=== PATIENT | male | born 1960 | race Caucasian/White ===

== ENCOUNTER 2020-07-05 03:45 | Outpatient (CLI) | payer OTHER, SELFPAY ==
[2020-07-05 18:37] LABS: SARS-CoV-2 RNA PCR Negative
== END 2020-07-05 03:46 | disposition home or self-care (01) ==
LOC: ANHCOVIDDT 03:45
PROVIDERS: PCP Internal Medicine; Visit Provider Internal Medicine Gastroenterology
DX: Z01.812 Encounter for preprocedural laboratory examination (principal); Z20.828 Contact with and (suspected) exposure to other viral communicable diseases
CPT/HCPCS: 87635; C9803; U0003

== ENCOUNTER 2020-07-07 01:12 | Day surgery (SDC) | payer OTHER, SELFPAY ==
[2020-07-01 10:52] VITALS: BMI 28.0
[2020-07-07 06:50] VITALS: BP 115/78; PULSE 73; RESP 16; TEMP 36.2; O2SAT 99; BMI 27.6
[2020-07-07] MEDS: LACTATED RINGERS 1,000 ML 150 ML IV CONT (07:02)
--- NOTE | 2020-07-07 07:53 | WPDANESEPPF ---
Anes - Initial Pre Proc Eval Procedure: Operation Date: 07/07/20 08:00 Proposed Procedures p Esophagogastroduodenoscopy & Colonoscopy - Yoel Woods MD Date/Time: 07/07/20 07:53 Surgeon: Yoel Woods MD Pre Op Diagnosis: Iron Deficient Anemia Patient Data Age: 60 Gender: M Height: 6 ft Weight: 92.5 kg Last Vital Signs Temp 97.2 F L 07/07/20 06:50 Pulse 73 07/07/20 06:50 Resp 16 07/07/20 06:50 BP 115/78 07/07/20 06:50 Pulse Ox 99 07/07/20 06:50 Allergies Allergy/AdvReac Type Severity Reaction Status Date / Time No Known Allergies Allergy Unverified 07/07/20 06:49 Home Medications Medication Instructions Recorded Confirmed Type aspirin [Adult Low Dose Aspirin] 81 mg PO DAILY 07/01/20 07/07/20 History ferrous sulfate 325 mg PO DAILY 07/01/20 07/07/20 History losartan 100 mg PO DAILY 07/01/20 07/07/20 History metoprolol tartrate 25 mg PO BID 07/01/20 07/07/20 History rosuvastatin 10 mg PO HS 07/01/20 07/07/20 History Patient hx anesthesia problems: none Family hx anesthesia problems: none [facility] Past Medical History Medical History (Updated 07/07/20 @ 07:49 by Lenin Latif MD) Hyperlipidemia Hypertension Social History Social History Smoking status: Never smoker Alcohol intake: current Drinks per week: 10 Alcohol use details: BEER Substance use: never Substance use type: does not use Living arrangements: with family Spiritual care concerns: No Anes - Eval Final PreProcedure Day of Procedure 07/07/20 07:53 Patient weight: normal Heart: regular rate and rhythm Lungs: clear to auscultation Airway: Mallampati scale class II Neurological: alert and oriented Last oral intake: >/= 8 hours ASA classification: II Emergent: no Anesthetic plan: proceed Anesthesia type and monitoring: general GIVS and standard monitoring Informed Consent: The patient's anesthetic plan and its attendant risks and benefits were discussed with the patient/family/POA. Questions were solicited and answers provided to the satisfaction of the patient/family/POA.
--- NOTE | 2020-07-07 07:56 | WPDGICN ---
Assessment and Plan Assessment and plan (1) SIMONA (iron deficiency anemia): Code(s): D50.9 - Iron deficiency anemia, unspecified Status: Acute Assessment and Plan: Patient with iron deficiency anemia as well as occult blood in stool. Plan is to proceed with colonoscopy an EGD to assess for. Further recommendations will be given after endoscopy. Iron replacement otherwise anticipated postprocedure. GI Consult Note Consult date/time: 07/07/20 07:56 HPI: Sharron Barros is a 60 year old male Presents for evaluation of iron deficiency anemia. Patient in general feels well. He was noted to have mild anemia as an outpatient. Stool Hemoccult was identified as being positive. Patient denies any obvious blood in his stools. Does notice some fatigue. He denies any abdominal pain is bowel habits are normal. Past medical history is significant for a malignant melanoma resected for cure. And elevated cholesterol. Review of Systems Review of Systems: All systems reviewed & are unremarkable except as noted in HPI and below PMFSH Past Medical History Medical History Hyperlipidemia Hypertension Social History Social History Smoking status: Never smoker Alcohol intake: current Drinks per week: 10 Alcohol use details: BEER Substance use: never Substance use type: does not use Living arrangements: with family Spiritual care concerns: No Meds Home Medications and Allergies Home Medications Medication Instructions Recorded Confirmed Type aspirin [Adult Low Dose Aspirin] 81 mg PO DAILY 07/01/20 07/07/20 History ferrous sulfate 325 mg PO DAILY 07/01/20 07/07/20 History losartan 100 mg PO DAILY 07/01/20 07/07/20 History metoprolol tartrate 25 mg PO BID 07/01/20 07/07/20 History rosuvastatin 10 mg PO HS 07/01/20 07/07/20 History Allergies Allergy/AdvReac Type Severity Reaction Status Date / Time No Known Allergies Allergy Unverified 07/07/20 06:49 Vital Signs Vital Signs - 24 hr 07/07/20 06:50 Temperature 97.2 F L Pulse Rate 73 Respiratory Rate 16 Blood Pressure 115/78 Pulse Oximetry 99 Exam Narrative: Exam Narrative: Physical exam reveals patient to be alert. Vital signs stable. HEENT exam unremarkable. Lungs are clear to auscultation and percussion. Heart is without murmur or extra sounds. Abdominal exam bowel sounds are present soft nontender with no organomegaly. Digital external rectal exam is normal.
[2020-07-07] MEDS: BENZOCAINE (*SP) 60 ML SPRAY CAN (HURRICAINE) 1 SPRAY MUCOUS MEM (08:07)
[2020-07-07 08:38] VITALS: BP 89/59; PULSE 64; RESP 22; O2SAT 97
[2020-07-07 08:48] VITALS: BP 95/58; PULSE 70; RESP 23; O2SAT 99
[2020-07-07 08:58] VITALS: BP 99/59; PULSE 64; RESP 25; O2SAT 100
[2020-07-07 09:08] VITALS: BP 111/70; PULSE 62; RESP 17; O2SAT 100
== END 2020-07-07 09:39 | disposition home or self-care (01) ==
PROVIDERS: PCP Internal Medicine; Visit Provider Internal Medicine Gastroenterology
PROC: 0DJ08ZZ Inspection of Upper Intestinal Tract, Via Natural or Artificial Opening Endoscopic (ICD-10-PCS; CPT 43235; principal; 2020-07-07 08:00)
DX: D50.9 Iron deficiency anemia, unspecified (principal); K64.8 Other hemorrhoids; D37.4 Neoplasm of uncertain behavior of colon; K21.0 Gastro-esophageal reflux disease with esophagitis; I10 Essential (primary) hypertension; E78.5 Hyperlipidemia, unspecified; Z79.82 Long term (current) use of aspirin
CPT/HCPCS: 45380; 43239; 87081; 88305; J2001; J2370; J2704; J7120

== ENCOUNTER 2020-07-08 10:42 | Outpatient (CLI) | payer OTHER, SELFPAY ==
[2020-07-08 11:16] LABS: Hematocrit 43.8 % (42.0-52.0); Hemoglobin 14.3 g/dL (14.0-18.0); Mean Corpuscular HGB Conc 32.6 g/dl (32-36); Mean Corpuscular Hemoglobin 28.5 pg (26-34); Mean Corpuscular Volume 87.3 fl (80-100); Mean Platelet Volume 9.4 fl (7.4-10.4); Platelet Count Result 235 k/mm3 (150-375); Red Blood Count 5.02 M/mm3 (4.6-6.20); Red Cell Distribution Width 17.1 % (11.5-14.5); White Blood Count 4.9 K/mm3 (4.5-10.0)
[2020-07-08 11:31] LABS: Alanine Aminotransferase 24 U/L (4-50); Albumin Level 4.1 g/dL (3.5-5.1); Alkaline Phosphatase 64 U/L (38-126); Aspartate Amino Transferase 23 U/L (17-59); Bilirubin,Total 0.3 mg/dL (0.2-1.3)
[2020-07-08 11:58] LABS: Carcinoembryonic Antigen 2.5 ng/mL (0.0-3.0)
== END 2020-07-08 10:43 | disposition home or self-care (01) ==
PROVIDERS: PCP Internal Medicine; Visit Provider Internal Medicine Gastroenterology
DX: K63.89 Other specified diseases of intestine (principal)
CPT/HCPCS: 36415; 80076; 82378; 85027

== ENCOUNTER 2020-07-12 09:53 | Outpatient (CLI) | payer OTHER, SELFPAY ==
--- NOTE | 2020-07-12 11:00 | ECG_ITS ---
Measurements Intervals [place] Rate: 50 P: 64 HI: 186 QRS: 7 QRSD: 122 T: 47 QT: 436 QTc: 398 Interpretive Statements SINUS BRADYCARDIA INTRAVENTRICULAR CONDUCTION DELAY DELAYED PRECORDIAL R/S TRANSITION BORDERLINE ECG Electronically Signed On 07-12-2020 11:40:03 CDT by Tucker Carranza D.O.
== END 2020-07-12 09:54 | disposition home or self-care (01) ==
LOC: ANHSURGERY 09:55
PROVIDERS: PCP Internal Medicine; Visit Provider Surgery
DX: D49.0 Neoplasm of unspecified behavior of digestive system (principal); I10 Essential (primary) hypertension
CPT/HCPCS: 36415; 86850; 86900; 86901; 93005

== ENCOUNTER → 2020-07-14 08:36 | Outpatient (CLI) | payer OTHER, SELFPAY ==
--- NOTE | ~2020-07-14 | CT_ITS ---
EXAMINATION: CT abdomen pelvis w con INDICATION: Colon mass, irregular bowel movements, melanoma melanoma TECHNIQUE: Computed tomographic images of the abdomen and pelvis were obtained after the administrati on of 100 cc of Omnipaque 350 intravenous contrast. The dose-length product (DLP) was 908.26 mGy-cm. Automated exposure control and iterative reconstruction technique were employed. COMPARISON: None available FINDINGS: The lung bases are clear. The heart size is normal. Cysts of the liver measure up to 1.7 cm in the left hepatic lobe. The spleen, pancreas, gallbladder, and adrenal glands are normal. The righ t kidney is unremarkable. There is 2.0 cm soft tissue density mass abutting the left kidney lower margoth e. There is irregular wall thickening involving the mid ascending colon. There are prominent, but non enlarged lymph nodes in the adjacent bowel mesentery. There is no free intraperitoneal gas or evidenc e of bowel obstruction. The appendix is normal. There is moderate lumbar spondylosis at L5-S1. IMPRESSION: 1. Irregular wall thickening of the mid ascending colon, likely reflecting the colon mass described i n clinical history. 2. Indeterminate soft tissue density mass abutting the inferior pole of the left kidney. Finding coul d reflect a kidney mass or possibly melanoma. Consider further evaluation by MRI without and with con trast. Reviewed, dictated and finalized at location B. IMPRESSION: 1. Irregular wall thickening of the mid ascending colon, likely reflecting the colon mass described in clinical history. 2. Indeterminate soft tissue density mass abutting the inferior pole of the lef t kidney. Finding could reflect a kidney mass or possibly melanoma. Consider fu rther evaluation by MRI without and with contrast.
[2020-07-14 09:01] LABS: Estimated Glomerular Filt Rate > 60
== END ==
PROVIDERS: PCP Internal Medicine; Visit Provider Surgery
DX: K63.89 Other specified diseases of intestine (principal)
CPT/HCPCS: 74177; Q9967

== ENCOUNTER 2020-07-15 00:15 | Outpatient (CLI) | payer OTHER, SELFPAY ==
[2020-07-16 13:40] LABS: SARS-CoV-2 RNA PCR Negative
== END 2020-07-15 00:16 | disposition home or self-care (01) ==
LOC: ANHCOVIDDT 00:15
PROVIDERS: PCP Internal Medicine; Visit Provider Surgery
DX: Z01.812 Encounter for preprocedural laboratory examination (principal); Z20.828 Contact with and (suspected) exposure to other viral communicable diseases
CPT/HCPCS: 87635; C9803; U0003

== ENCOUNTER 2020-07-18 11:56 | Inpatient (IN) | payer OTHER, SELFPAY ==
[2020-07-12 10:08] VITALS: BP 132/73; PULSE 57; RESP 16; TEMP 36.6; O2SAT 100; BMI 28.3
[2020-07-18] VITALS (12 sets, daily range): BP systolic 101–147; BP diastolic 59–69; PULSE 63–98; RESP 10–20; TEMP 36.3–37; O2SAT 95–100
[2020-07-18] MEDS: LACTATED RINGERS 1,000 ML 30 ML IV CONT ×2 (06:30→11:07)
--- NOTE | 2020-07-18 06:42 | P.PNAN_ITS ---
Anes - Initial Pre Proc Eval Procedure: Operation Date: 07/18/20 07:30 Proposed Procedures p Laparoscopic Right Hemicolectomy, Possible Open Hemicolectomy - Phillip García MD Date/Time: 07/18/20 06:42 Surgeon: Phillip García MD Pre Op Diagnosis: High Grade Dysplasia Right Colon Tumor Patient Data Age: 60 Gender: M Height: 1.83 m Weight: 94.7 kg Last Vital Signs Temp 36.6 C 07/12/20 10:08 Pulse 57 L 07/12/20 10:08 Resp 16 07/12/20 10:08 BP 132/73 07/12/20 10:08 Pulse Ox 100 07/12/20 10:08 Allergies Allergy/AdvReac Type Severity Reaction Status Date / Time No Known Allergies Allergy Verified 07/12/20 10:02 Home Medications Medication Instructions Recorded Confirmed Type aspirin [Adult Low Dose Aspirin] 81 mg PO HS 07/01/20 07/12/20 History ferrous sulfate 325 mg PO BID 07/01/20 07/12/20 History losartan 100 mg PO DAILY 07/01/20 07/12/20 History metoprolol tartrate 25 mg PO BID 07/01/20 07/12/20 History rosuvastatin 10 mg PO HS 07/01/20 07/12/20 History erythromycin 500 mg tablet 1 gm PO Q12H #6 tablet 07/12/20 07/12/20 Rx neomycin 500 mg tablet 1 gm PO Q8H #6 tablet 07/12/20 07/12/20 Rx pantoprazole 40 mg PO BID 07/12/20 07/12/20 History Patient hx anesthesia problems: none Family hx anesthesia problems: none [facility] Past Medical History Medical History (Updated 07/18/20 @ 06:42 by Koby Bowers DO) Colonic mass GERD (gastroesophageal reflux disease) History of atrial fibrillation History of skin cancer Hyperlipidemia Hypertension Surgical History Surgical History H/O colonoscopy History of esophagogastroduodenoscopy History of lipoma Social History Social History Smoking status: Never smoker Smokeless tobacco user: chewing tobacco Second hand tobacco smoke exposure: No Additional smoking assessment comments: CHEWING TOBACCO X 10 YRS ON AND OFF Alcohol intake: current Drinks per week: 15 Alcohol use details: BEER Substance use: never Substance use type: does not use Living arrangements: with family Spiritual care concerns: No Anes - Eval Final PreProcedure Day of Procedure 07/18/20 06:42 Patient weight: overweight Heart: regular rate and rhythm Lungs: clear to auscultation and normal air movement Airway: Mallampati scale class 1 Neurological: alert and oriented Last oral intake: >/= 8 hours ASA classification: III Emergent: no Anesthetic plan: proceed Anesthesia type and monitoring: general ETT and standard monitoring Informed Consent: The patient's anesthetic plan and its attendant risks and b enefits were discussed with the patient/family/POA. Questions were solicited and answers provided to the satisfaction of the patient/family/POA.
[2020-07-18] MEDS: ALVIMOPAN 12 MG CAPSULE PO ×2 (07:01→19:25)
[2020-07-18] MEDS: ACETAMINOPHEN 500 MG TABLET 1000 MG PO (07:01)
[2020-07-18] MEDS: KETOROLAC 15 MG/ML VIAL (*BKC) IV PUSH (07:01)
[2020-07-18 07:03] LABS: Glucose Point of Care 62 (65-105)
--- NOTE | 2020-07-18 07:14 | WPDHPUPDATE1 ---
History and Physical Update Update Date/Time: 07/18/20 07:14 History and Physical has been reviewed, including an updated exam of the patient. There are NO changes in the patient's condition. Risks, benefits, and alternatives of a laparoscipic right hemicolectomy, possible right hemicolectomy have been discussed and questions answered. Patient agrees to proceed with procedure.
[2020-07-18] MEDS: ceFAZolin 2 GM/D5W 50 ML 2 GM/50 ML BAG IVPB (07:28)
[2020-07-18] MEDS: metroNIDAZOLE 500 MG/ISO 100ML 500 MG/100 ML BAG 100 MG IVPB ×3 (07:59→23:22)
[2020-07-18] MEDS: BUPIVACAINE/EPINEPHRINE 0.5% 30 ML VIAL INFILTRATE (08:00)
[2020-07-18 08:25] LABS: Glucose Point of Care 92 (65-105)
[2020-07-18 11:18] LABS: Glucose Point of Care 125 (65-105)
--- NOTE | 2020-07-18 11:28 | SUR.PHASEI ---
1125 - dr. morrison at bedside talking with pt.
--- NOTE | 2020-07-18 11:39 | PM.PROC ---
Procedure Note - Detailed Date of procedure: 07/18/20 Pre-op diagnosis: High Grade Dysplasia Right Colon Tumor Post-op diagnosis: same Procedure performed: Laparoscopic right hemicolectomy Description of procedure: The patient was placed in the supine position on the Operating Room table with a footboard in place. Following this, after induction of adequate general endotracheal anesthesia by [facility] Anesthesia staff, we carefully clipped and prepped the abdomen. A 16 fr. Pedro catheter was inserted prior to prepping. Naso-gastric tube was inserted by anesthesia staff. Following this, the abdomen was widely draped and then time-out was performed confirming the patient, procedure, and site of surgery. Following this, a supra-umbilical incision was made after injection local anesthetic. Starting in the umbilicus and going slightly cephalad, a 2 cm. Incision was made, which was carried down through the midline fascia and carefully elevated by 2 stay sutures of O Vicryl. The abdomen was entered, under direct visualization, with scissors and splitting the peritoneum. With good vision, a Lange cannula was slid into place bluntly and secured with the 2 stay sutures. Following this, the abdomen was insufflated to 15 mmHg pressure of CO2 gas. We carefully placed the 5 mm 0 degree scope and inspected the abdomen. Following this, we carefully placed 2 additional trocars, a 5 mm just lateral to the umbilicus in the left lower abdomen, and a second one in the midline in the lower abdomen just above the pubic bone. These were all placed under direct vision with the laparoscope. I then began dissection by carefully elevating the cecum, appendix, and the ileum, and we entered the retroperitoneum by carefully incising the peritoneal lining and coming underneath the cecum and ileum, rotating this cephalad, until we could see some spot dye marker on the posterior of the right colon and we could see into the retro-peritoneum. The right ureter was visualized and protected. I then re-directed the dissection and worked to separate the transverse colon from the omentum along the avascular plane where it attaches to the anterior,superior surface of the colon about in the midline. I then dissected the proximal transverse colon away from the Gallbladder and the liver superiorly and the duodenum posteriorly. It then appeared that the entire right colon and the ileum were free enough to be mobilized to the midline. We then opened the patient. Placing the patient flat, we placed additional local anesthetic into the skin, underneath the umbilicus and coming down around the umbilicus about 2 cms., and then also 2 more cms. more cephalad. The fascia was opened to the length of the skin incision and fascia was incised in the midline. We then placed the smallest wound protector within this wound to hold the incision open and protect the wound as we exteriorized the dissected right colon. Prior to opening the patient, a bowel grasper was placed on the distal ileum through the left lower quadrant 5 mm port site. This was pulled into the view of the incision and 2 [place] clamps were used to grab the cecum and the small bowel, and we carefully mobilized the cecum, the small bowel, and the entire right colon up onto the abdominal wall. This seemed to come up nicely. The palpable mass was in the proximal right colon and we therefore felt we could easily resect the bowel in the area where we had mobilized it. Following this, resection was completed by placing the BONNIE across the bowel approximately 10 cms. proximal to the ileocecal valve and fired it across the small bowel. The mesentery was taken with the LigaSure along with the right colic vessels. This was taken well away from the colon to get a good amount of lymph nodes. Following this, we selected a site on the proximal transverse colon, where we could transect. This was dissected carefully and the BONNIE placed across this and fired. I then finished dividing ju
--- NOTE | 2020-07-18 12:05 | PC.NURSE ---
Report received from Liza MARIANO
--- NOTE | 2020-07-18 12:05 | PC.NURSE ---
This patient, Sharron Barros, was admitted to 3 [facility] Surg Room 321-01. Patient/family oriented to hospital policies and general routines including ID bracelet, bed and alarms, visiting hours, pain management, procedures, bathroom and other care routines, personal items, smoking policy, room service/diet, and visiting hours. Valuables list has been completed. Information on how to activate the Rapid Response Team has been discussed. Patient/Family are encouraged to report perceived risks to care and to ask questions if they do not understand what they are told or what they should do.
[2020-07-18] MEDS: LACTATED RINGERS 1,000 ML 100 ML IV CONT (12:38)
[2020-07-18] MEDS: GABAPENTIN 300 MG CAPSULE 600 MG PO (13:50)
[2020-07-18] MEDS: ASPIRIN 81 MG ENTERIC TABLET PO (20:20)
[2020-07-18] MEDS: PANTOPRAZOLE 40 MG TABLET PO (20:20)
[2020-07-18] MEDS: METOPROLOL TARTRATE 25 MG TABLET PO (20:20)
[2020-07-18] MEDS: ROSUVASTATIN 10 MG TABLET PO (20:20)
[2020-07-18] MEDS: MORPHINE SULFATE 4 MG/ML INJ IV PUSH (22:41)
[2020-07-19] MEDS: LACTATED RINGERS 1,000 ML 100 ML IV CONT (02:01)
[2020-07-19 03:04] VITALS: BP 111/72; PULSE 63; RESP 20; TEMP 36.5; O2SAT 99
[2020-07-19 06:00] VITALS: BP 140/74; PULSE 71; RESP 20; TEMP 36.6; O2SAT 100
[2020-07-19 07:56] LABS: Basophils Percent Auto 0.1 % (0.2-1.2); Hematocrit 41.4 % (42.0-52.0); Hemoglobin 13.5 g/dL (14.0-18.0); Immature Granulocyte Absolute 0.04 K/mm3 (0.00-0.031); Immature Granulocyte Percent A 0.3 % (0-0.5); Lymphocytes Absolute Auto 0.72 K/mm3 (0.9-3.2); Lymphocytes Percent Auto 5.3 % (18.3-44.2); Mean Corpuscular HGB Conc 32.6 g/dl (32-36); Mean Corpuscular Hemoglobin 28.6 pg (26-34); Mean Corpuscular Volume 87.7 fl (80-100); Mean Platelet Volume 10.3 fl (7.4-10.4); Monocytes Absolute Auto 0.8 K/mm3 (0.1-0.6); Monocytes Percent Auto 6.1 % (2.6-8.5); Neutrophils Percent Auto 88.2 % (45.5-73.1); Platelet Count Result 258 k/mm3 (150-375); Red Blood Count 4.72 M/mm3 (4.6-6.20); Red Cell Distribution Width 16.7 % (11.5-14.5); White Blood Count 13.6 K/mm3 (4.5-10.0)
[2020-07-19 08:08] LABS: Anion Gap 9 mmol/L (8-16); Blood Urea Nitrogen 26 mg/dL (9-20); Calcium 8.6 mg/dL (8.4-10.2); Carbon Dioxide 23 mmol/L (22-30); Chloride 105 mmol/L (98-107); Estimated CRCL calculation 30 ml/min; Estimated Glomerular Filt Rate 25; Glucose 125 mg/dL (75-110); Potassium 4.7 mmol/L (3.4-5.0); Sodium 137 mmol/L (137-145)
[2020-07-19] MEDS: metroNIDAZOLE 500 MG/ISO 100ML 500 MG/100 ML BAG 100 MG IVPB ×2 (08:14→15:18)
[2020-07-19] MEDS: LOSARTAN POTASSIUM 100 MG TABLET PO (08:16)
[2020-07-19] MEDS: ALVIMOPAN 12 MG CAPSULE PO (08:16)
[2020-07-19] MEDS: ENOXAPARIN 40 MG/0.4 ML SYRINGE SUB-Q (08:17)
[2020-07-19] MEDS: PANTOPRAZOLE 40 MG TABLET PO (08:17)
[2020-07-19 08:21] VITALS: PULSE 76
[2020-07-19] MEDS: METOPROLOL TARTRATE 25 MG TABLET PO (08:21)
[2020-07-19 09:00] VITALS: O2SAT 95
--- NOTE | 2020-07-19 09:27 | WPDANESPN ---
Anes - Prog Note Post-Op Date/Time: 07/19/20 09:27 Cardiovascular status: normal Respiratory status: normal Airway patency: baseline Mental status: baseline Post-Op hydration status: normal Vital Signs: Last Vital Signs Temp 36.6 C 07/19/20 06:00 Pulse 76 07/19/20 08:21 Resp 20 07/19/20 06:00 BP 140/74 07/19/20 06:00 Pulse Ox 100 07/19/20 06:00 Pain Score (VAS): 3-mild groin pain I/O: Intake & Output 07/18/20 07/19/20 07/19/20 23:59 07:59 15:59 Intake Total 510 1500 Output Total 300 Balance 210 1500 Laboratory Tests 07/19/20 05:47 07/19/20 05:47 07/18/20 07/19/20 07/19/20 11:16 05:47 05:47 WBC 13.6 H RBC 4.72 Hgb 13.5 L Hct 41.4 L MCV 87.7 MCH 28.6 MCHC 32.6 RDW 16.7 H Plt Count 258 MPV 10.3 Immature Gran % (Auto) 0.3 Neut % (Auto) 88.2 H Lymph % (Auto) 5.3 L [place] % (Auto) 6.1 Eos % (Auto) 0.0 Baso % (Auto) 0.1 L Lymph # (Auto) 0.72 L [place] # (Auto) 0.8 H Eos # (Auto) 0.0 Baso # (Auto) 0.0 Abs Immat Gran (auto) 0.04 H Absolute Neuts (auto) 12.0 H Absolute Nucleated RBC 0.0 Nucleated RBC % 0.0 Sodium 137 Potassium 4.7 Chloride 105 Carbon Dioxide 23 Anion Gap 9 BUN 26 H Creatinine 2.60 H Estim Creat Clear Calc 30 Estimated GFR 25 L Glucose 125 H POC Capillary Glucose 125 H Calcium 8.6 Post-procedural complaints: none Patient Feedback: Patient satisfied with anesthetic care.
[2020-07-19 10:00] VITALS: BP 111/70; PULSE 67; RESP 16; TEMP 36.4; O2SAT 98
[2020-07-19 11:26] LABS: Add Urine Microscopic? YES; Appearance Urine Clear (Clear); Bilirubin Urine Negative (Negative); Blood Urine 1+ (Negative); Color Urine Straw (Yellow); Glucose Urine UA Negative (Negative); Ketones Urine Negative (Negative); Leukocyte Esterase Ur Trace LEU/UL (Negative); Mucus Urine Rare /lpf; Nitrate Urine Negative (Negative); Protein Urine Negative (Negative); RBC Urine 0-2 /hpf (0-2); Specific Grav Ur 1.011 (1.001-1.035); Squamous Epithelial Cell Urine Rare /hpf (Few); Urobilinogen Urine Negative mg/dL (<2.0)
[2020-07-19 14:00] VITALS: BP 113/58; PULSE 67; RESP 18; TEMP 36.4; O2SAT 98
--- NOTE | 2020-07-19 14:16 | PM.DS ---
DS: Admitting Diagnosis Admitting Diagnosis Admitting Diagnosis: High Grade Dysplasia Right Colon Tumor Right colon mass Hypertension Cholesterol Past history of atrial fibrillation. Recent iron deficiency anemia. DS: Discharge Diagnosis Discharge Diagnosis (1) Colonic mass: Onset Date: ~06/2020 Code(s): K63.89 - Other specified diseases of intestine Status: Acute Assessment and Plan: this was the main reason for the patient's admission. He underwent a right hemicolectomy during the admission. He received Entereg to avoid ileus and did very well following the surgery. (2) History of atrial fibrillation: Onset Date: Unknown Code(s): Z86.79 - Personal history of other diseases of the circulatory system Status: Acute Assessment and Plan: This was in the distant past. Patient converted with medications. He is not currently having atrial fibrillation that we know of. (3) Hypertension: Onset Date: Unknown Code(s): I10 - Essential (primary) hypertension Status: Acute Assessment and Plan: Patient continues on his usual home medication for this and his blood pressure was good through the hospital stay. (4) SIMONA (iron deficiency anemia): Onset Date: ~06/2020 Code(s): D50.9 - Iron deficiency anemia, unspecified Status: Acute Assessment and Plan: Patient was started on with iron and his most recent hemoglobin here in the hospital this morning was 13. Therefore I asked him not to take iron since constipating until about 1 week after discharge. We could then repeat a hemoglobin hematocrit on him in about a month once she restarts his iron in a week. (5) Dysplastic colon polyp: Onset Date: ~07/2020 Code(s): K63.5 - Polyp of colon Status: Acute Assessment and Plan: This was found on recent colonoscopy. It appeared to be a mass rather than just a polyp that could later be removed with a snare by colonoscopy. Therefore it was recommended that he have a right hemicolectomy. This has been accomplished the patient is ready for discharge. DS: Summary Hospital Course Reason for hospitalization: High-grade dysplasia and a colon mass right colon Hospital Course: patient had uneventful hospital course. He was admitted after his surgery. He did receive indirect to try to prevent and ileus. This seemed to work well as he tolerated sips of clear liquids through the evening after his surgery. Tolerated a clear liquid breakfast breakfast and a full liquid lunch in the day following surgery. He is tolerating the pain from the incision fairly well with just Tylenol. He did have some burning with urination so urinalysis was done and I will send him home with 3 days of Bactrim since he had 10-13 white blood cells per high-power field on a repeat urinalysis. Urine culture should be pending. Patient was instructed on how to take care of his wounds and will be followed up in the office in approximately 1/2 weeks. Status at Discharge Functional status at discharge: independent ambulation Overall status at discharge: patient is not back to baseline ( Moving all a bit slower than normal and has lifting restriction the next 8 weeks.) Time Spent with Patient Time attestation: Total time spent providing and/or coordinating discharge services: Time spent: Less than 30 minutes Exam Const: General: cooperative, no acute distress, alert and awake Orientation/consciousness: patient oriented x3 HENMT: Mouth: Yes moist mucous membranes Neck: Neck: normal visual inspection Chest: Chest palpation & inspection: normal inspection of the chest Resp: Effort & Inspection: normal respiratory effort Auscultation: clear to auscultation bilaterally Cardio: Jugular venous distension: no JVD Rate: regular rate Rhythm: regular rhythm GI: Inspection: other ( Incisions clean and dry with slight bruising around them.) GI Palp: Yes S
--- NOTE | 2020-07-19 14:25 | PCDIET ---
Nutrition Screen Complete: MST score of 2 for wt loss and reduced appetite Pt current nutrition is Full liquids & Ensure Surgery Nutrition recommendation: Agree Last recorded weight is 99.7 kg. Bowel Motility: Labs Reviewed:WBC 13.6, Glucose 125, GFR 25 Meds Noted: Additional Notes: Pt on full liquids and soft foods tomorrow per pt and MD. Pt drinking ensure surgery. Edu provided on food ideas to meet diet needs at this time. Pt d/c home today. Appetite good. Pt encouraged to call with questions after d/c.
== END 2020-07-19 17:00 | disposition home or self-care (01) | DRG 331 ==
LOC: ANH3MEDSUR 12:05
PROVIDERS: Admitting Provider Surgery; PCP Internal Medicine; Visit Provider Surgery
PROC: 0DTF4ZZ Resection of Right Large Intestine, Percutaneous Endoscopic Approach (ICD-10-PCS; CPT 44204; principal; 2020-07-18 07:30)
DX: C18.2 Malignant neoplasm of ascending colon (principal); K63.5 Polyp of colon; K21.9 Gastro-esophageal reflux disease without esophagitis; E78.5 Hyperlipidemia, unspecified; D50.9 Iron deficiency anemia, unspecified; I10 Essential (primary) hypertension; F17.220 Nicotine dependence, chewing tobacco, uncomplicated; Z23 Encounter for immunization; Z86.79 Personal history of other diseases of the circulatory system
CPT/HCPCS: 36415; 80048; 81001; 85025; 87086; 88309; 88342; 90471; 90686; A9270; G0008; J0690; J1100; J1650; J1885; J2250; J2270; J2370; J2405; J2704; J2710; J3010; J7120

== ENCOUNTER 2020-07-20 07:20 | Observation (INO) | payer OTHER, SELFPAY ==
[2020-07-20] VITALS (8 sets, daily range): BP systolic 101–138; BP diastolic 63–79; PULSE 54–78; RESP 16–18; TEMP 35.7–37.1; O2SAT 95–100; BMI 28.1
--- NOTE | ~2020-07-20 | CT_ITS ---
EXAMINATION: CT abdomen pelvis wo con EXAM DATE: 07/20/2020 08:59 INDICATION: Recent surgery for colonic mass. Urinary retention, rising creatinine. TECHNIQUE: Spiral CT of the abdomen and pelvis was performed without contrast. Axial, coronal and s agittal images were reviewed. The dose-length product (DLP) for this examination was 902.18 mGy-cm. The exposure was tailored according to patient size (auto mA exposure control), and iterative recons truction (ASIR) was used as additional dose reduction technique. Comparison is made to prior examinat ion from 07/14/2020. FINDINGS: There has been interval ascending colonic resection with intact appearing anastomosis. Ther e is colonic fluid measuring about 40 Hounsfield units, proteinaceous and could indicate presence of hematocrit. Please correlate for hematochezia or diarrhea. Scattered foci of free intraperitoneal gas likely postoperative. There is small to moderate amount of peritoneal fluid, also most likely postop erative. The courses of the ureters are unremarkable, and there is a Pedro catheter within a collapse d bladder lumen. Prostate measures 4.4 cm transverse dimension. There is edema along the shaft of the penis. There are multiple small scattered foci of gas within th e fascial planes anterior to the pubis symphysis and also extending to the right inguinal region. Giv en the midline supraumbilical approach identified, no obvious postoperative explanation for subcutane ous gas in the prepubic region, and fasciitis should be considered/excluded. I discussed this concern with Tyler Sullivan DO at 07/20/2020 09:10 CDT. There are 2 liver cysts identified measuring up to 1.4 cm and the left liver lobe. Spleen, pancreas, kidneys are unremarkable aside from an exophytic left renal hemorrhagic cyst measuring 1.8 cm. Mild a ortic arteriosclerotic disease. No retroperitoneal lymphadenopathy. Stomach and small bowel are unrem arkable. Right middle lobe granuloma. Right basilar subsegmental atelectasis and trace right pleural effusion. There are no osteoblastic or osteolytic lesions identified. IMPRESSION: 1. Multiple small foci of gas anterior to the pubis and in the right inguinal region; recommend cons idering/excluding necrotic fasciitis. 2. Proteinaceous colonic fluid, could indicate diarrhea and/or hematochezia. 3. Small to moderate ascites, small amount of peritoneal gas probably postoperative following ascend ing colonic resection. Reviewed, dictated and finalized at location A. IMPRESSION: 1. Multiple small foci of gas anterior to the pubis and in the right inguinal region; recommend considering/excluding necrotic fasciitis. 2. Proteinaceous colonic fluid, could indicate diarrhea and/or hematochezia. 3. Small to moderate ascites, small amount of peritoneal gas probably postoper ative following ascending colonic resection.
--- NOTE | 2020-07-20 07:48 | ED.ABDPAIN ---
HPI - Abdominal Pain General Chief Complaint: Urogenital-Male Stated Complaint: post op comp Time Seen by Provider: 07/20/20 07:25 Source: RN notes reviewed History of Present Illness HPI narrative: Patient presents to the emergency department from home for painful urination. Patient states he was just admitted and discharged yesterday after having surgery by Dr. García for removal of a colonic mass. Patient states he initially had a catheter that had been removed 2 days ago had been urinating fine but began to have some pain with urination yesterday. He states his urine was tested in the hospital for a left and was diagnosed with urinary tract infection started on Bactrim. Patient states when he returned home he is had increased difficulty urinating as well as painful urination. Patient also notes that the shaft of his penis has become swollen as well as pain in the suprapubic region. He denies any fever chills chest pain shortness of breath nausea vomiting diarrhea or any other symptoms has been taking antibiotics as prescribed Related Data Home Medications Medication Instructions Recorded Confirmed aspirin [Adult Low Dose Aspirin] 81 mg PO HS 07/01/20 07/18/20 ferrous sulfate 325 mg PO BID 07/01/20 07/18/20 losartan 100 mg PO DAILY 07/01/20 07/18/20 metoprolol tartrate 25 mg PO BID 07/01/20 07/18/20 rosuvastatin 10 mg PO HS 07/01/20 07/18/20 pantoprazole 40 mg PO BID 07/12/20 07/18/20 Allergies Allergy/AdvReac Type Severity Reaction Status Date / Time No Known Allergies Allergy Verified 07/18/20 07:26 Review of Systems Review of Systems: Narrative: Gen.: Denies fevers or chills ENT: Denies congestion Respiratory: Denies shortness of breath or cough CV: Denies chest pain or palpitations GI: Reports suprapubic abdominal pain, denies nausea, emesis or diarrhea see HPI Musculoskeletal: Denies back pain or muscle pain Neuro: Denies numbness, tingling, weakness or focal weakness Skin: Denies rash Except as documented, all other systems reviewed and negative [facility] Past Medical History Medical History Colonic mass (~06/2020) GERD (gastroesophageal reflux disease) History of atrial fibrillation (Unknown) History of skin cancer Hyperlipidemia Hypertension (Unknown) Surgical History Surgical History H/O colonoscopy History of esophagogastroduodenoscopy History of lipoma Social History Social History Smoking status: Never smoker Smokeless tobacco user: chewing tobacco Second hand tobacco smoke exposure: No Additional smoking assessment comments: CHEWING TOBACCO X 10 YRS ON AND OFF Alcohol intake: current Drinks per week: 4 Substance use: never Substance use type: does not use Gender identity (if verbalized by the patient): Male Spiritual care concerns: No Exam Narrative: Exam Narrative: APPEARANCE: No acute distress, nontoxic, resting in bed EYES: EOMI HEENT: Normocephalic, atraumatic, OMM RESPIRATORY: No respiratory distress Clear to auscultation bilaterally with no rhonchi wheezing or rales. CARDIOVASCULAR: Regular rate and rhythm without murmurs rubs or gallops. ABDOMINAL: Soft, healing surgical wounds with mild ecchymosis around wounds in lower abdomen, tenderness palpation in the left suprapubic region, no tenderness in the right suprapubic region right lower quadrant or left lower quadrant, no rebound or guarding : The shaft of the penis is swollen, circumcised, no skin lesions seen, no swelling or erythema of the scrotum no testicular tenderness MUSCULOSKELETAl: Moves all extremities. No clubbing, cyanosis or edema. NEURO: Awake and alert. Following commands, speech normal, no focal deficits SKIN:: Warm, dry. No rashes lesions or abrasions PSYCHIATRIC: Normal affect/mood, Course Course Emergency Course: Patient
--- NOTE | 2020-07-20 08:13 | PC.NURSE ---
TECHS AT BEDSIDE DRAWING LABS, PT THEN ATTEMPTING URINE SAMPLE.
[2020-07-20 08:25] LABS: Basophils Percent Auto 0.3 % (0.2-1.2); Eosinophils Percent Auto 0.4 % (0-4.4); Hematocrit 39.8 % (42.0-52.0); Hemoglobin 13.2 g/dL (14.0-18.0); Immature Granulocyte Absolute 0.03 K/mm3 (0.00-0.031); Immature Granulocyte Percent A 0.3 % (0-0.5); Lymphocytes Absolute Auto 1.82 K/mm3 (0.9-3.2); Lymphocytes Percent Auto 17.7 % (18.3-44.2); Mean Corpuscular HGB Conc 33.2 g/dl (32-36); Mean Corpuscular Hemoglobin 29.2 pg (26-34); Mean Corpuscular Volume 88.1 fl (80-100); Mean Platelet Volume 9.8 fl (7.4-10.4); Monocytes Absolute Auto 0.9 K/mm3 (0.1-0.6); Neutrophils Absolute Auto 7.5 K/mm3 (1.3-6.7); Neutrophils Percent Auto 72.3 % (45.5-73.1); Platelet Count Result 254 k/mm3 (150-375); Red Blood Count 4.52 M/mm3 (4.6-6.20); Red Cell Distribution Width 17.2 % (11.5-14.5); White Blood Count 10.3 K/mm3 (4.5-10.0)
[2020-07-20 08:41] LABS: Alanine Aminotransferase 14 U/L (4-50); Alkaline Phosphatase 53 U/L (38-126); Anion Gap 11 mmol/L (8-16); Aspartate Amino Transferase 18 U/L (17-59); Bilirubin,Total 0.2 mg/dL (0.2-1.3); Blood Urea Nitrogen 53 mg/dL (9-20); Calcium 8.7 mg/dL (8.4-10.2); Carbon Dioxide 22 mmol/L (22-30); Chloride 102 mmol/L (98-107); Estimated CRCL calculation 16 ml/min; Estimated Glomerular Filt Rate 12; Glucose 103 mg/dL (75-110); Potassium 4.7 mmol/L (3.4-5.0); Sodium 135 mmol/L (137-145)
[2020-07-20] MEDS: SODIUM CHLORIDE 0.9% IV 1,000 ML 999 ML IV CONT (09:13)
[2020-07-20 10:31] LABS: Lactic Acid Reflex 1.1 mmol/L (0.7-2.1)
--- NOTE | 2020-07-20 11:11 | PC.NURSE ---
BEDSIDE REPORT TO MONTSERRAT MCCOY AT THIS TIME, SHE HAS ASSUMED PT CARE.
[2020-07-20] MEDS: LACTATED RINGERS 1,000 ML 125 ML IV CONT (11:33)
[2020-07-20] MEDS: SODIUM CHLORIDE 0.9% IV 1,000 ML 125 ML IV CONT ×2 (13:42→20:33)
--- NOTE | 2020-07-20 13:45 | PM.IMHP ---
H&P: HPI History of Present Illness Date/Time: 07/20/20 13:45 Chief complaint: post op comp Narrative: Sharron Barros is a 60 year old male who 2 days ago underwent a laparoscopic right hemicolectomy. Today presented back to emergency room complaining of difficulty urination. He appeared to have retention with a bladder scan so therefore a Pedro catheter was placed. Supple because of his abdominal pain a CT scan of the abdomen pelvis was done. This was reviewed and the report below. A reviewed this with Dr. Francisco clayton. The air in the tissues in the suprapubic and right inguinal area probably related to the previous laparoscopy and the small 5 mm port that I put in the suprapubic position. There does not appear to be any blood in the urine and since the Pedro was placed almost 2000 cc of come out. This may explain why also has somewhat elevated creatinine however it is significantly elevated compared to preop. Therefore will keep him as a 23 hour observation pt. and if his creatinine improved with hydration and the use of the Pedro catheter for good drainage will continue treatment and perhaps let him go home with a Pedro in place and follow up with Urology as an outpatient. If the creatinine does not it improved significantly may get a consult from Nephrology. He and his seemed understand wished to proceed in this manner. He is not having any bowel problems he did have 2 bowel movements last evening home and he is hungry. Will let him start full liquids this no surgical intervention is planned. Review of Systems Constitutional: Constitutional: Reports no additional constitutional complaints, Reports fatigue and Denies malaise Eyes: Eyes: Denies change in vision and Denies loss of vision ENT: Reports Normal hearing present, Denies change in voice, Denies dizziness, Denies hoarseness and Denies sore throat Cardiovascular: Cardiovascular: Denies chest pain, Denies leg edema and Denies dyspnea Comments: Patient has a distant history of atrial fibrillation for which he has converted with medications and not recurred. He also has hyperlipidemia for which he is on medication. Respiratory: Respiratory: Denies cough, Denies dyspnea and Denies wheezing Gastrointestinal: Gastrointestinal: Denies hematochezia, Denies change in bowel habits and Denies heartburn Genitourinary: Genitourinary: Reports urinary frequency (last evening ) and Denies urinary incontinence Comments: poor urination at home last night. Neurologic: Reports Normal hearing present, Denies confusion, Denies dizziness, Denies loss of vision, Denies memory loss and Denies seizure-like activity Psychiatric: Psychiatric: Denies confusion, Denies depression and Denies memory loss Endocrine: Endocrine: Denies cold intolerance and Reports fatigue Hematologic/Lymphatic: Hematologic/Lymphatic: Denies easy bleeding and Denies easy bruising Allergic/Immunologic: Allergic/Immunologic: Denies wheezing PMFSH Past Medical History Medical History Colonic mass (~06/2020) GERD (gastroesophageal reflux disease) History of atrial fibrillation (Unknown) History of skin cancer Hyperlipidemia Hypertension (Unknown) Surgical History Surgical History H/O colonoscopy History of esophagogastroduodenoscopy History of lipoma Social History Social History Smoking status: Never smoker Smokeless tobacco user: chewing tobacco Second hand tobacco smoke exposure: No Additional smoking assessment comments: CHEWING TOBACCO X 10 YRS ON AND OFF Alcohol intake: current Drinks per week: 4 Substance use: never Substance use type: does not use Gender identity (if verbalized by the patient): Male Spiritual care concerns: No Meds Home Medications and Allergies Home Medications Medication Instructio
--- NOTE | 2020-07-20 13:59 | WPDURCON ---
Assessment and Plan Assessment and plan (1) Acute UTI: Onset Date: ~07/19/20 Code(s): N39.0 - Urinary tract infection, site not specified Status: Acute Assessment and Plan: Continue IV Rocephin, tailor antibiotics to culture results. (2) Acute renal failure: Onset Date: ~07/19/20 Code(s): N17.9 - Acute kidney failure, unspecified Status: Acute Assessment and Plan: Likely related to post op retention. Will re-check creatinine in the morning to ensure it resolves, if not nephrology would need to be consulted. Will monitor labs tomorrow. (3) Acute urinary retention: Onset Date: ~07/20/20 Code(s): R33.8 - Other retention of urine Status: Acute Assessment and Plan: Keep olmos in for 7-10 days, start Fl Flomax, then follow up in the office for a voiding trial. (4) Scrotal edema: Code(s): N50.89 - Other specified disorders of the male genital organs Status: Acute Assessment and Plan: Apply scrotal support, d/t recent pelvic incision. No crepitus felt on exam in the pelvis or suprapubic area, WBC is minimally elevated, he is afebrile and has no drainage from incisional wound in the pelvis. Pelvic pain is resolved with placement of olmos catheter. Gas seen on CT in the pelvis is likely in relation to his incision and port that was placed during surgery two days ago and not necrotizing fasciitis. Should resolve with elevation over time. Urology Consult Note HPI Date Seen: 07/20/20 Primary Care Provider: Antoine Gama, Consult Narrative Narrative: Sharron Barros is a 60 year old male who presents to the ED today for dysuria, difficulty urinating, edema to penis and scrotum as well as pelvic pain that started acutely last night. He was dribbling at home and unable to urinate well. He is POD #2 for a Laparoscopic Right Hemicolectomy d/t a colon mass with Dr. García and was discharged home yesterday. He had a olmos in for the procedure which was removed post operatively and he was able to urinate at that time but c/o dysuria. They treated him for a UTI with Bactrim and his urine/blood cultures are pending. WBC is slightly elevated at 10.3, but creatinine has significantly increased to 5.00. He is afebrile and denies hematuria, chills, nausea or vomiting. He is still on a clear liquid diet and passing flatus as well as some watery bowel movements. The more concerning factor was on his CT scan abdomen and pelvis it showed multiple small foci of gas anterior to pelvis in the right inguinal region. However he has an incison in his pelvis from one of the ports used for his surgery two days ago and is likley air from the laparoscopic surgery. He did have pelvic pain initially which was resolved once a catheter was placed noting urinary retention and 2300cc of clear yellow urine on return. Review of Systems Cardiovascular: Cardiovascular: Denies chest pain Respiratory: Respiratory: Reports no additional respiratory complaints Gastrointestinal: Gastrointestinal: Reports abdominal pain, Reports diarrhea, Reports loose stools, Denies nausea and Denies vomiting Genitourinary: Genitourinary: Denies hematuria, Reports oliguria, Denies genital pain, Reports dysuria, Denies flank pain, Denies penile discharge, Reports scrotal swelling, Denies testicular pain, Reports urinary frequency, Reports urinary hesitancy, Denies urinary incontinence and Reports urinary urgency [facility] Past Medical History Medical History Colonic mass (~06/2020) GERD (gastroesophageal reflux disease) History of atrial fibrillation (Unknown) History of skin cancer Hyperlipidemia Hypertension (Unknown) Surgical History Surgical History H/O colonoscopy History of esophagogastroduodenoscopy History of lipoma Social History Social History (Reviewed 07/20/20 @ 14:04 by Christian
[2020-07-20] MEDS: TAMSULOSIN HCL 0.4 MG CAPSULE PO (14:05)
[2020-07-20] MEDS: MORPHINE SULFATE (*CRX) 2 MG/ML INJ IV PUSH (17:34)
--- NOTE | 2020-07-20 18:40 | ADMGEN ---
This patient, Sharron Barros, was admitted to 3 Med Surg Room 301-01. Patient/family oriented to hospital policies and general routines including ID bracelet, bed and alarms, visiting hours, pain management, procedures, bathroom and other care routines, personal items, smoking policy, room service/diet, and visiting hours. Valuables list has been completed. Information on how to activate the Rapid Response Team has been discussed. Patient/Family are encouraged to report perceived risks to care and to ask questions if they do not understand what they are told or what they should do.
[2020-07-21] MEDS: HYDROcodone/acetaminophen (*CRX) 7.5-325 MG TABLET 1 TAB PO (01:33)
[2020-07-21] MEDS: SODIUM CHLORIDE 0.9% IV 1,000 ML 125 ML IV CONT (04:40)
[2020-07-21] MEDS: HYDROcodone/acetaminophen (*CRX) 5-325 MG TABLET 1 TAB PO (05:58)
[2020-07-21 06:00] VITALS: BP 130/61; PULSE 73; RESP 18; TEMP 37.3; O2SAT 96
[2020-07-21 06:37] LABS: Basophils Percent Auto 0.5 % (0.2-1.2); Eosinophils Percent Auto 0.6 % (0-4.4); Hematocrit 36.8 % (42.0-52.0); Hemoglobin 11.7 g/dL (14.0-18.0); Immature Granulocyte Absolute 0.01 K/mm3 (0.00-0.031); Immature Granulocyte Percent A 0.2 % (0-0.5); Lymphocytes Absolute Auto 1.61 K/mm3 (0.9-3.2); Mean Corpuscular HGB Conc 31.8 g/dl (32-36); Mean Corpuscular Hemoglobin 28.7 pg (26-34); Mean Corpuscular Volume 90.4 fl (80-100); Mean Platelet Volume 10.4 fl (7.4-10.4); Monocytes Absolute Auto 0.6 K/mm3 (0.1-0.6); Monocytes Percent Auto 10.2 % (2.6-8.5); Neutrophils Absolute Auto 3.9 K/mm3 (1.3-6.7); Neutrophils Percent Auto 62.5 % (45.5-73.1); Platelet Count Result 192 k/mm3 (150-375); Red Blood Count 4.07 M/mm3 (4.6-6.20); Red Cell Distribution Width 17.4 % (11.5-14.5); White Blood Count 6.2 K/mm3 (4.5-10.0)
[2020-07-21 07:00] LABS: Anion Gap 2 mmol/L (8-16); Blood Urea Nitrogen 19 mg/dL (9-20); Calcium 8.1 mg/dL (8.4-10.2); Carbon Dioxide 26 mmol/L (22-30); Chloride 111 mmol/L (98-107); Estimated CRCL calculation 63 ml/min; Estimated Glomerular Filt Rate > 60; Glucose 90 mg/dL (75-110); Potassium 4.4 mmol/L (3.4-5.0); Sodium 139 mmol/L (137-145)
[2020-07-21] MEDS: TAMSULOSIN HCL 0.4 MG CAPSULE PO (08:27)
--- NOTE | 2020-07-21 11:19 | WPDUROPN2 ---
Progress Note: A&P Assessment and Plan (1) Acute renal failure: Onset Date: ~07/19/20 Code(s): N17.9 - Acute kidney failure, unspecified Status: Acute Assessment and Plan: Resolved post cath placement. Creatinine was 5.0 yesterday and today is 1.2. (2) Acute urinary retention: Onset Date: ~07/20/20 Code(s): R33.8 - Other retention of urine Status: Acute Assessment and Plan: Ok to discharge home with olmos, will follow up next week for voiding trial in the office. Continue Tamsulosin. (3) Acute UTI: Onset Date: ~07/19/20 Code(s): N39.0 - Urinary tract infection, site not specified Status: Acute Assessment and Plan: Urine cutlure negative, may stop antibiotics. Subjective Subjective Date/Time Seen: 07/21/20 11:19 Urinary Retention Acute Renal Failure Review of Systems Cardiovascular: Cardiovascular: Denies chest pain Respiratory: Respiratory: Reports no additional respiratory complaints Gastrointestinal: Gastrointestinal: Denies abdominal pain, Denies nausea and Denies vomiting Genitourinary: Genitourinary: Denies hematuria and Reports other (retention, olmos in place) Exam Resp: Effort & Inspection: normal respiratory effort Cardio: Rate: regular rate GI: GI Palp: Yes Soft to palpation and Yes Tenderness to palpation present (GI) (at incision sites only, pelvic pain has resolved post cath placement) : General: Yes bladder normal to palpation Urinary Catheter: Urinary Catheter: patent and draining and urine clear Extrem: General: no edema Objective Data Vital Signs Vital Signs: Vital Signs - 24 hr 07/20/20 15:34 07/20/20 18:00 07/20/20 18:27 Temperature 97.7 F Pulse Rate 77 70 58 L Respiratory Rate 18 18 17 Blood Pressure 115/63 138/78 113/79 Pulse Oximetry 99 95 98 07/20/20 22:00 07/21/20 06:00 Temperature 98.8 F 99.1 F Pulse Rate 77 73 Respiratory Rate 18 18 Blood Pressure 136/67 130/61 Pulse Oximetry 98 96 Intake/Output Intake/Output: Intake & Output 07/18/20 07/19/20 07/20/20 07/21/20 23:59 23:59 23:59 23:59 Intake Total 2250 1050 Output Total 4150 2700 Balance -1900 -1650 Meds/Results Medications: Active Medications Generic Name Dose Route Start Last Admin Trade Name Della PRN Reason Stop Dose Admin Ceftriaxone Sodium/Dextrose 1 gm in 50 mls @ 100 mls/hr 07/21/20 12:00 Rocephin 1 Gm/D5w [address] Sodium Chloride 1,000 mls @ 125 mls/hr 07/20/20 12:20 07/21/20 04:40 Normal Saline Iv IV CONT 125 mls/hr .Q8H CT Administration Tamsulosin HCl 0.4 mg 07/21/20 09:00 07/21/20 08:27 Flomax PO 0.[address] Administration Radiology Results: ITS Impressions Abdomen/Pelvis CT 07/20/20 09:05 IMPRESSION: 1. Multiple small foci of gas anterior to the pubis and in the right inguinal region; recommend considering/excluding necrotic fasciitis. 2. Proteinaceous colonic fluid, could indicate diarrhea and/or hematochezia. 3. Small to moderate ascites, small amount of peritoneal gas probably postoperative following ascending colonic resection. Labs Labs: Laboratory Results - last 24 hr 07/21/20 07/21/20 05:39 05:39 WBC 6.2 RBC 4.07 L Hgb 11.7 L Hct 36.8 L MCV 90.4 MCH 28.7 MCHC 31.8 L RDW 17.4 H Plt Count 192 MPV 10.4 Immature Gran % (Auto) 0.2 Neut % (Auto) 62.5 Lymph % (Auto) 26.0 [place] % (Auto) 10.2 H Eos % (Auto) 0.6 Baso % (Auto) 0.5 Lymph # (Auto) 1.61 [place] # (Auto) 0.6 Eos # (Auto) 0.0 Baso # (Auto) 0.0 Abs Immat Gran (auto) 0.01 Absolute Neuts (auto) 3.9 Absolute Nucleated RBC 0.0 Nucleated RBC % 0.0 Sodium 139 Potassium 4.4 Chloride 111 H Carbon Dioxide 26 Anion Gap 2 L BUN 19 D Creatinine 1.20 D Estim Creat Clear Calc 63 Estimated GFR > 60 Glucose 90 Calcium 8.1 L Magnesium 2.0
[2020-07-21 14:00] VITALS: BP 128/62; PULSE 70; RESP 18; TEMP 37.1; O2SAT 100
--- NOTE | 2020-07-21 15:41 | PM.DS ---
DS: Admitting Diagnosis Admitting Diagnosis Admitting Diagnosis: acute renal insufficiency and urinary retention DS: Discharge Diagnosis Discharge Diagnosis (1) Acute urinary retention: Onset Date: ~07/20/20 Code(s): R33.8 - Other retention of urine Status: Acute Assessment and Plan: Most likely secondary to BPH. Appreciate consultation by Urology. Patient has been started on Flomax and will continue this for a week and have a voiding trial in the urology office next week. (2) Acute renal failure: Onset Date: ~07/19/20 Code(s): N17.9 - Acute kidney failure, unspecified Status: Acute Assessment and Plan: Patient's creatinine was significantly up this may have been related to combination of the urine tract obstruction secondary to his BPH and acute urinary retention along with some affects of Bactrim which he was given when he went home because the possibility of urinary tract infection. In the interim the urine cultures come back negative. Patient had Pedro catheter had a large urine output over the last 24 hours and his BUN and creatinine are back down to normal range. (3) Colonic mass: Onset Date: ~06/2020 Code(s): K63.89 - Other specified diseases of intestine Status: Acute Assessment and Plan: Patient is now postop day 3 the after a right hemicolectomy done laparoscopically. Pathology was discussed with him today showing a T3 N0 M0 invasive carcinoma of the right colon. He also had several polyps in the area of the specimen. His bowel function has returned and he is on a soft diet. (4) Hypertension: Onset Date: Unknown Code(s): I10 - Essential (primary) hypertension Status: Acute Assessment and Plan: Patient will resume his usual medications for this and his blood pressures been in within normal range. DS: Summary Hospital Course Reason for hospitalization: Acute urinary retention with elevated BUN and creatinine Hospital Course: patient had a fairly uneventful hospital course. After a Pedro catheter was placed in the emergency room he has significant decompression of the urinary tract. CT scan was carefully reviewed with radiologist and Urology and we did not feel that the patient had any signs of necrotizing fasciitis as it was felt initially after the scan. Because I had done laparoscopy and used a lower suprapubic port we believe some of the soft tissue air was related to that. Patient did well overnight and had significant urine output from his Pedro catheter. He was started on Flomax. Patient's creatinine was significantly up and this may have been related to combination of the urine tract obstruction secondary to his BPH and acute urinary retention along with some affects of Bactrim which he was given when he went home because the possibility of urinary tract infection. In the interim the urine cultures have come back negative. Patient had Pedro catheter had a large urine output over the last 24 hours and his BUN and creatinine are back down to normal range. Patient was allowed to have full liquid diet and then advance to a soft diet today. He is feeling well and he has had another bowel movement so we are planning discharge today. Status at Discharge Functional status at discharge: independent ambulation Overall status at discharge: patient is not back to baseline ( Patient is walking easily however knows his limitations from his midline incision.) Time Spent with Patient Time attestation: Total time spent providing and/or coordinating discharge services: Time spent: Less than 30 minutes Exam Const: General: cooperative, no acute distress, alert and awake Orientation/consciousness: patient oriented x3 HENMT: Mouth: Yes moist mucous membranes Neck: Neck: normal visual inspection Chest: Chest palpation & inspection: normal inspection of the chest Resp: Effort & Inspection: normal respiratory effort Au
== END 2020-07-21 16:00 | disposition home or self-care (01) ==
LOC: ANHED 13:06 → ANH3MEDSUR 07-21 15:23 → ANHCPC 07-22 09:20
PROVIDERS: Admitting Provider Surgery; Emergency Provider Emergency Medicine; PCP Internal Medicine; Visit Provider Surgery
DX: N17.9 Acute kidney failure, unspecified (principal); N39.0 Urinary tract infection, site not specified; N40.1 Benign prostatic hyperplasia with lower urinary tract symptoms; R33.8 Other retention of urine; N50.89 Other specified disorders of the male genital organs; Z90.49 Acquired absence of other specified parts of digestive tract; Z85.038 Personal history of other malignant neoplasm of large intestine; I48.91 Unspecified atrial fibrillation; E78.5 Hyperlipidemia, unspecified; K21.9 Gastro-esophageal reflux disease without esophagitis; I10 Essential (primary) hypertension; F17.220 Nicotine dependence, chewing tobacco, uncomplicated; Z85.828 Personal history of other malignant neoplasm of skin; Z79.82 Long term (current) use of aspirin
CPT/HCPCS: 36415; 51702; 74176; 80048; 80053; 83605; 83735; 85025; 87040; 96361; 96365; 96366; 96375; 99291; A9270; G0378; J0696; J2270; J7030; J7120

== ENCOUNTER 2020-08-02 09:25 | Outpatient (CLI) | payer OTHER, SELFPAY ==
[2020-08-02 09:39] LABS: Basophils Absolute Auto 0.1 K/mm3 (0.0-0.1); Basophils Percent Auto 0.5 % (0.2-1.2); Eosinophils Absolute Auto 0.1 K/mm3 (0-0.3); Eosinophils Percent Auto 0.7 % (0-4.4); Hematocrit 39.6 % (42.0-52.0); Hemoglobin 12.9 g/dL (14.0-18.0); Immature Granulocyte Absolute 0.02 K/mm3 (0.00-0.031); Immature Granulocyte Percent A 0.2 % (0-0.5); Lymphocytes Absolute Auto 1.36 K/mm3 (0.9-3.2); Lymphocytes Percent Auto 14.9 % (18.3-44.2); Mean Corpuscular HGB Conc 32.6 g/dl (32-36); Mean Corpuscular Hemoglobin 28.7 pg (26-34); Mean Corpuscular Volume 88.2 fl (80-100); Mean Platelet Volume 8.5 fl (7.4-10.4); Monocytes Absolute Auto 0.6 K/mm3 (0.1-0.6); Monocytes Percent Auto 6.5 % (2.6-8.5); Neutrophils Absolute Auto 7.1 K/mm3 (1.3-6.7); Neutrophils Percent Auto 77.2 % (45.5-73.1); Platelet Count Result 259 k/mm3 (150-375); Red Blood Count 4.49 M/mm3 (4.6-6.20); Red Cell Distribution Width 15.6 % (11.5-14.5); White Blood Count 9.1 K/mm3 (4.5-10.0)
[2020-08-02 09:53] LABS: Anion Gap 9 mmol/L (8-16); Blood Urea Nitrogen 17 mg/dL (9-20); Carbon Dioxide 29 mmol/L (22-30); Chloride 102 mmol/L (98-107); Estimated Glomerular Filt Rate > 60; Glucose 103 mg/dL (75-110); Potassium 4.7 mmol/L (3.4-5.0); Sodium 140 mmol/L (137-145)
== END 2020-08-02 09:26 | disposition home or self-care (01) ==
PROVIDERS: PCP Internal Medicine; Visit Provider Surgery
DX: N28.9 Disorder of kidney and ureter, unspecified (principal); D64.9 Anemia, unspecified
CPT/HCPCS: 36415; 80048; 85025

== ENCOUNTER 2020-09-12 08:57 | Outpatient (CLI) | payer OTHER, SELFPAY ==
[2020-09-12 09:11] LABS: Basophils Percent Auto 0.6 % (0.2-1.2); Eosinophils Absolute Auto 0.1 K/mm3 (0-0.3); Eosinophils Percent Auto 2.8 % (0-4.4); Hematocrit 43.5 % (42.0-52.0); Hemoglobin 14.6 g/dL (14.0-18.0); Immature Granulocyte Absolute 0.02 K/mm3 (0.00-0.031); Immature Granulocyte Percent A 0.6 % (0-0.5); Lymphocytes Absolute Auto 1.25 K/mm3 (0.9-3.2); Mean Corpuscular HGB Conc 33.6 g/dl (32-36); Mean Corpuscular Hemoglobin 29.3 pg (26-34); Mean Corpuscular Volume 87.3 fl (80-100); Mean Platelet Volume 8.5 fl (7.4-10.4); Monocytes Absolute Auto 0.6 K/mm3 (0.1-0.6); Monocytes Percent Auto 17.1 % (2.6-8.5); Neutrophils Absolute Auto 1.6 K/mm3 (1.3-6.7); Neutrophils Percent Auto 43.9 % (45.5-73.1); Platelet Count Result 169 k/mm3 (150-375); Red Blood Count 4.98 M/mm3 (4.6-6.20); Red Cell Distribution Width 15.8 % (11.5-14.5); White Blood Count 3.6 K/mm3 (4.5-10.0)
== END 2020-09-12 08:58 | disposition home or self-care (01) ==
PROVIDERS: PCP Internal Medicine; Visit Provider Surgery
DX: D50.9 Iron deficiency anemia, unspecified (principal)
CPT/HCPCS: 36415; 85025

== ENCOUNTER 2020-10-25 08:08 | Outpatient (CLI) | payer OTHER, SELFPAY ==
[2020-10-25 08:27] LABS: Eosinophils Absolute Auto 0.1 K/mm3 (0-0.3); Eosinophils Percent Auto 1.8 % (0-4.4); Hematocrit 44.9 % (42.0-52.0); Hemoglobin 15.2 g/dL (14.0-18.0); Immature Granulocyte Absolute 0.01 K/mm3 (0.00-0.031); Immature Granulocyte Percent A 0.3 % (0-0.5); Lymphocytes Absolute Auto 1.51 K/mm3 (0.9-3.2); Lymphocytes Percent Auto 37.8 % (18.3-44.2); Mean Corpuscular HGB Conc 33.9 g/dl (32-36); Mean Corpuscular Hemoglobin 29.6 pg (26-34); Mean Corpuscular Volume 87.5 fl (80-100); Mean Platelet Volume 8.8 fl (7.4-10.4); Monocytes Absolute Auto 0.4 K/mm3 (0.1-0.6); Monocytes Percent Auto 10.5 % (2.6-8.5); Neutrophils Absolute Auto 1.9 K/mm3 (1.3-6.7); Neutrophils Percent Auto 48.6 % (45.5-73.1); Platelet Count Result 206 k/mm3 (150-375); Red Blood Count 5.13 M/mm3 (4.6-6.20); Red Cell Distribution Width 14.2 % (11.5-14.5)
[2020-10-25 11:20] LABS: Alanine Aminotransferase 27 U/L (4-50); Albumin Level 4.2 g/dL (3.5-5.1); Alkaline Phosphatase 63 U/L (38-126); Anion Gap 7 mmol/L (8-16); Aspartate Amino Transferase 28 U/L (17-59); Bilirubin,Total 0.8 mg/dL (0.2-1.3); Blood Urea Nitrogen 17 mg/dL (9-20); Calcium 9.1 mg/dL (8.4-10.2); Carbon Dioxide 27 mmol/L (22-30); Chloride 106 mmol/L (98-107); Estimated Glomerular Filt Rate > 60; Glucose 95 mg/dL (75-110); Potassium 4.2 mmol/L (3.4-5.0); Sodium 140 mmol/L (137-145)
[2020-10-25 11:51] LABS: Carcinoembryonic Antigen 1.8 ng/mL (0.0-3.0)
== END 2020-10-25 08:09 | disposition home or self-care (01) ==
LOC: ANHLAB 08:09
PROVIDERS: PCP Internal Medicine; Visit Provider Internal Medicine Hematology & Oncology
DX: C18.2 Malignant neoplasm of ascending colon (principal)
CPT/HCPCS: 36415; 80053; 82378; 85025

== ENCOUNTER → 2021-02-02 09:07 | Outpatient (CLI) | payer OTHER, SELFPAY ==
--- NOTE | ~2021-02-02 | CT_ITS ---
EXAMINATION: CT abdomen pelvis w con DATE: 02/02/2021 09:40 INDICATION: Malignant neoplasm of the ascending colon. Status post colon resection. TECHNIQUE: Computed tomography (CT) of the abdomen and pelvis was performed with 100 cc Omnipaque 350 intravenous contrast. The dose-length product was 814.42 mGy-cm. Automated exposure control and iter ative reconstruction technique were employed. COMPARISON: CT dated 07/20/2020 FINDINGS: Lung bases are unremarkable. Heart size is normal. No significant vascular abnormality. No lymphadenopathy. Liver cyst reidentified. There is a hypodense tubular structure in the right hepatic lobe, most likely focally dilated hepatic duct. The spleen, pancreas, adrenal glands are unremarkabl e. Right kidney is unremarkable. There is a hypovascular exophytic left renal mass measuring 2 x 2 cm compared with 2 x 1.7 cm on prior examination measuring 50 Hounsfield units. Further evaluation with MRI is recommended for further assessment of this mass and focal intrahepatic biliary dilatation. No nobstructive bowel gas pattern. Status post right colectomy. Colonic diverticulosis without evidence for diverticulitis. No abnormal pelvic masses or fluid collections. Stable bone island right femoral head. No new lytic or blastic lesions. IMPRESSION: 1. Linear hypovascular lesion of the liver, likely focally dilated right hepatic duct. No obstructing mass or stone identified. 2: Slight enlargement of 2 cm hypodense exophytic left renal mass. This most likely represents a comp licated hemorrhagic or proteinaceous cyst, although low-grade neoplasm is not excluded. 3: Follow-up MRI/MRCP examination is recommended for further assessment of the above findings. Reviewed, dictated and finalized at location B. IMPRESSION: 1. Linear hypovascular lesion of the liver, likely focally dilated right hepati c duct. No obstructing mass or stone identified. 2: Slight enlargement of 2 cm hypodense exophytic left renal mass. This most li christie represents a complicated hemorrhagic or proteinaceous cyst, although low-g rade neoplasm is not excluded. 3: Follow-up MRI/MRCP examination is recommended for further assessment of the above findings.
[2021-02-02 09:33] LABS: Estimated Glomerular Filt Rate > 60
== END ==
PROVIDERS: Visit Provider Internal Medicine Hematology & Oncology
DX: C18.2 Malignant neoplasm of ascending colon (principal)
CPT/HCPCS: 74177; Q9967

== ENCOUNTER 2021-02-13 08:02 | Outpatient (CLI) | payer OTHER, SELFPAY ==
[2021-02-13 08:27] LABS: Basophils Absolute Auto 0.1 K/mm3 (0.0-0.1); Basophils Percent Auto 0.8 % (0.2-1.2); Eosinophils Absolute Auto 0.1 K/mm3 (0-0.3); Eosinophils Percent Auto 1.2 % (0-4.4); Hematocrit 43.1 % (42.0-52.0); Hemoglobin 14.7 g/dL (14.0-18.0); Immature Granulocyte Absolute 0.02 K/mm3 (0.00-0.031); Immature Granulocyte Percent A 0.3 % (0-0.5); Lymphocytes Absolute Auto 3.66 K/mm3 (0.9-3.2); Mean Corpuscular HGB Conc 34.1 g/dl (32-36); Mean Corpuscular Hemoglobin 31.1 pg (26-34); Mean Corpuscular Volume 91.1 fl (80-100); Mean Platelet Volume 8.5 fl (7.4-10.4); Monocytes Absolute Auto 0.5 K/mm3 (0.1-0.6); Monocytes Percent Auto 8.8 % (2.6-8.5); Neutrophils Absolute Auto 1.6 K/mm3 (1.3-6.7); Neutrophils Percent Auto 26.9 % (45.5-73.1); Platelet Count Result 177 k/mm3 (150-375); Red Blood Count 4.73 M/mm3 (4.6-6.20); Red Cell Distribution Width 13.9 % (11.5-14.5); White Blood Count 5.9 K/mm3 (4.5-10.0)
[2021-02-13 13:37] LABS: Alanine Aminotransferase 71 U/L (4-50); Albumin Level 3.9 g/dL (3.5-5.1); Alkaline Phosphatase 56 U/L (38-126); Anion Gap 5 mmol/L (8-16); Aspartate Amino Transferase 33 U/L (17-59); Bilirubin,Total 0.4 mg/dL (0.2-1.3); Blood Urea Nitrogen 16 mg/dL (9-20); Calcium 8.6 mg/dL (8.4-10.2); Carbon Dioxide 24 mmol/L (22-30); Chloride 111 mmol/L (98-107); Estimated Glomerular Filt Rate > 60; Glucose 101 mg/dL (75-110); Potassium 4.3 mmol/L (3.4-5.0); Sodium 140 mmol/L (137-145)
[2021-02-13 14:03] LABS: Carcinoembryonic Antigen 1.4 ng/mL (0.0-3.0)
== END 2021-02-13 08:03 | disposition home or self-care (01) ==
PROVIDERS: Visit Provider Internal Medicine Hematology & Oncology
DX: C18.2 Malignant neoplasm of ascending colon (principal)
CPT/HCPCS: 36415; 80053; 82378; 85025

== ENCOUNTER → 2021-05-26 10:35 | Outpatient (CLI) | payer OTHER, SELFPAY ==
--- NOTE | ~2021-05-26 | MR_ITS ---
EXAMINATION: MR abdomen wo/w con INDICATION: Liver lesion, history of colon cancer TECHNIQUE: Coronal SSFSE ARC, WATER:coronal LAVA-FLEX, Coronal 2D FIESTA FatSat, Axial SSFSE BH ARC, Axial 3D DualEcho BH, Axial SSFSE-IR, Axial DWI b=500, Axial 2D FIESTA FatSat, pre and dynamic postco ntrast Axial LAVA ARC, postcontrast Coronal In and Opposed phase LAVA FLEX COMPARISON: CT, 02/02/2021 CONTRAST: Multihance, 18 cc FINDINGS: Cysts of the liver measure up to 1.6 cm. The previously described linear abnormality of the right hepatic lobe is not definitely identified. There is an area of branching enhancement on the cu rrent examination which appears to correlate with the anterior division of the right portal vein. Res olved venous thrombosis is a possible explanation for the finding on recent CT. There is a 6 mm T1 hy pointense, mildly T2 hyperintense lesion in liver segment which appears to demonstrate interrupted peripheral nodular enhancement with progressive filling, consistent with a hemangioma. No suspicious liver mass is identified. The spleen, pancreas, gallbladder, and adrenal glands are normal. There is a 2 cm proteinaceous cyst of the left kidney lower pole corresponding to the lesion in question on r ecent CT. There are no pathologically enlarged abdominal lymph nodes. No dilated loops of bowel are p resent. IMPRESSION: 1. No suspicious liver lesion identified. 2. Proteinaceous cyst of the left kidney accounting for the lesion in question on recent CT. Reviewed, dictated and finalized at location B.
[2021-05-26 11:20] LABS: Estimated Glomerular Filt Rate > 60
== END ==
PROVIDERS: PCP Internal Medicine; Visit Provider Internal Medicine Hematology & Oncology
DX: K76.9 Liver disease, unspecified (principal); N28.1 Cyst of kidney, acquired
CPT/HCPCS: 74183; A9577

== ENCOUNTER 2021-06-01 13:23 | Outpatient (CLI) | payer OTHER, SELFPAY ==
[2021-06-01 13:36] LABS: Basophils Percent Auto 0.6 % (0.2-1.2); Eosinophils Absolute Auto 0.1 K/mm3 (0-0.3); Hematocrit 44.5 % (42.0-52.0); Hemoglobin 15.7 g/dL (14.0-18.0); Immature Granulocyte Absolute 0.01 K/mm3 (0.00-0.031); Immature Granulocyte Percent A 0.2 % (0-0.5); Lymphocytes Absolute Auto 2.51 K/mm3 (0.9-3.2); Lymphocytes Percent Auto 51.3 % (18.3-44.2); Mean Corpuscular HGB Conc 35.3 g/dl (32-36); Mean Corpuscular Hemoglobin 31.9 pg (26-34); Mean Corpuscular Volume 90.4 fl (80-100); Mean Platelet Volume 8.8 fl (7.4-10.4); Monocytes Absolute Auto 0.3 K/mm3 (0.1-0.6); Monocytes Percent Auto 5.7 % (2.6-8.5); Neutrophils Percent Auto 41.2 % (45.5-73.1); Platelet Count Result 184 k/mm3 (150-375); Red Blood Count 4.92 M/mm3 (4.6-6.20); Red Cell Distribution Width 12.8 % (11.5-14.5); White Blood Count 4.9 K/mm3 (4.5-10.0)
[2021-06-01 13:40] LABS: Blood Urea Nitrogen 18 mg/dL (8-26); Carbon Dioxide 24 mmol/L (22-30); Chloride 106 mmol/L (98-109); Estimated Glomerular Filt Rate > 60; Glucose 114 mg/dL (70-105); Potassium 3.8 mmol/L (3.5-4.9); Sodium 143 mmol/L (138-146)
[2021-06-01 16:54] LABS: Alanine Aminotransferase 36 U/L (4-50); Albumin Level 4.1 g/dL (3.5-5.1); Alkaline Phosphatase 60 U/L (38-126); Anion Gap 10 mmol/L (8-16); Aspartate Amino Transferase 32 U/L (17-59); Bilirubin,Total 0.6 mg/dL (0.2-1.3); Blood Urea Nitrogen 18 mg/dL (9-20); Calcium 8.8 mg/dL (8.4-10.2); Carbon Dioxide 22 mmol/L (22-30); Chloride 106 mmol/L (98-107); Estimated Glomerular Filt Rate > 60; Glucose 110 mg/dL (65-110); Sodium 138 mmol/L (137-145)
[2021-06-01 17:23] LABS: Carcinoembryonic Antigen 2.5 ng/mL (0.0-3.0)
== END 2021-06-01 13:24 | disposition home or self-care (01) ==
LOC: ANHLAB 13:25
PROVIDERS: PCP Internal Medicine; Visit Provider Internal Medicine Hematology & Oncology
DX: C18.2 Malignant neoplasm of ascending colon (principal)
CPT/HCPCS: 36415; 80048; 80053; 82378; 85025

== ENCOUNTER 2021-08-31 15:39 | Outpatient (CLI) | payer OTHER, SELFPAY ==
[2021-08-31 15:52] LABS: Basophils Percent Auto 0.5 % (0.2-1.2); Eosinophils Absolute Auto 0.1 K/mm3 (0-0.3); Eosinophils Percent Auto 0.8 % (0-4.4); Hematocrit 48.9 % (42.0-52.0); Hemoglobin 17.1 g/dL (14.0-18.0); Immature Granulocyte Absolute 0.01 K/mm3 (0.00-0.031); Immature Granulocyte Percent A 0.2 % (0-0.5); Lymphocytes Absolute Auto 2.79 K/mm3 (0.9-3.2); Lymphocytes Percent Auto 46.9 % (18.3-44.2); Mean Corpuscular Hemoglobin 32.5 pg (26-34); Mean Platelet Volume 8.8 fl (7.4-10.4); Monocytes Absolute Auto 0.5 K/mm3 (0.1-0.6); Monocytes Percent Auto 8.7 % (2.6-8.5); Neutrophils Absolute Auto 2.6 K/mm3 (1.3-6.7); Neutrophils Percent Auto 42.9 % (45.5-73.1); Platelet Count Result 188 k/mm3 (150-375); Red Blood Count 5.26 M/mm3 (4.6-6.20); Red Cell Distribution Width 12.3 % (11.5-14.5)
[2021-08-31 15:55] LABS: Blood Urea Nitrogen 18 mg/dL (8-26); Carbon Dioxide 22 mmol/L (22-30); Chloride 103 mmol/L (98-109); Estimated Glomerular Filt Rate > 60; Glucose 90 mg/dL (70-105); Potassium 3.9 mmol/L (3.5-4.9); Sodium 142 mmol/L (138-146)
[2021-08-31 17:10] LABS: Alanine Aminotransferase 32 U/L (4-50); Albumin Level 4.5 g/dL (3.5-5.1); Alkaline Phosphatase 56 U/L (38-126); Anion Gap 13 mmol/L (8-16); Aspartate Amino Transferase 31 U/L (17-59); Bilirubin,Total 0.8 mg/dL (0.2-1.3); Blood Urea Nitrogen 18 mg/dL (9-20); Calcium 8.9 mg/dL (8.4-10.2); Carbon Dioxide 23 mmol/L (22-30); Chloride 104 mmol/L (98-107); Estimated Glomerular Filt Rate > 60; Glucose 86 mg/dL (65-110); Potassium 3.9 mmol/L (3.4-5.0); Sodium 140 mmol/L (137-145)
[2021-08-31 17:42] LABS: Carcinoembryonic Antigen 1.7 ng/mL (0.0-3.0)
== END 2021-08-31 15:40 | disposition home or self-care (01) ==
LOC: ANHLAB 15:41
PROVIDERS: PCP Internal Medicine; Visit Provider Internal Medicine Hematology & Oncology
DX: C18.2 Malignant neoplasm of ascending colon (principal)
CPT/HCPCS: 36415; 80048; 80053; 82378; 85025

== ENCOUNTER 2021-10-10 00:22 | Day surgery (SDC) | payer OTHER, SELFPAY ==
[2021-09-25 12:07] VITALS: BMI 29.0
[2021-10-10 08:00] VITALS: BP 132/106; PULSE 81; RESP 16; TEMP 35.8; O2SAT 99; BMI 28.1
--- NOTE | 2021-10-10 08:02 | WPDANESEPPF ---
Anes - Initial Pre Proc Eval Procedure: Operation Date: 10/10/21 09:15 Proposed Procedures p Screening Colonoscopy - Yoel Woods MD Date/Time: 10/10/21 08:02 Surgeon: Yoel Woods MD Pre Op Diagnosis: hx of colon ca Patient Data Age: 61 Gender: M Height: 1.83 m Weight: 94.2 kg Last Vital Signs Temp 35.8 C L 10/10/21 08:00 Pulse 81 10/10/21 08:00 Resp 16 10/10/21 08:00 BP 132/106 H 10/10/21 08:00 Pulse Ox 99 10/10/21 08:00 Allergies Allergy/AdvReac Type Severity Reaction Status Date / Time No Known Allergies Allergy Verified 10/10/21 07:57 Home Medications Medication Instructions Recorded Confirmed Type aspirin [Adult Low Dose Aspirin] 81 mg PO HS 07/01/20 10/10/21 History metoprolol tartrate 25 mg PO BID 07/01/20 10/10/21 History rosuvastatin 10 mg PO HS 07/01/20 10/10/21 History apixaban [Eliquis] 5 mg PO BID 09/25/21 10/10/21 History Patient hx anesthesia problems: none Family hx anesthesia problems: none Results Review: All pre-operative results and documents have been reviewed as part of the pre-operative evaluation. [facility] Past Medical History Medical History (Updated 10/10/21 @ 08:04 by Yoel Woods MD) Colonic mass (~06/2020) GERD (gastroesophageal reflux disease) History of atrial fibrillation (Unknown) History of skin cancer Hyperlipidemia Hypertension (Unknown) Surgical History Surgical History H/O colonoscopy History of esophagogastroduodenoscopy History of lipoma History of right hemicolectomy 07/18/20 lap right hemocholectomy Social History Social History Smoking status: Never smoker Smokeless tobacco user: chewing tobacco Second hand tobacco smoke exposure: No Additional smoking assessment comments: CHEWING TOBACCO X 10 YRS ON AND OFF Alcohol intake: current Drinks per week: 8 Alcohol use details: BEERS Substance use: never Substance use type: does not use Living arrangements: with family Gender identity (if verbalized by the patient): Male Sexual Orientation (if Verbalized by the Patient): Straight or Heterosexual Spiritual care concerns: No Anes - Eval Final PreProcedure Day of Procedure 10/10/21 08:02 Patient weight: overweight Heart: regular rate and rhythm Lungs: clear to auscultation and normal air movement Airway: Mallampati scale class II Neurological: alert and oriented Last oral intake: >/= 8 hours ASA classification: III Emergent: no Anesthetic plan: proceed Anesthesia type and monitoring: general GIVS and standard monitoring Results Review: All pre-operative results and documents have been reviewed as part of the pre-operative evaluation. Informed Consent: The patient's anesthetic plan and its attendant risks and benefits were discussed with the patient/family/POA. Questions were solicited and answers provided to the satisfaction of the patient/family/POA.
--- NOTE | 2021-10-10 08:03 | P.CONGI_ITS ---
Assessment and Plan Assessment and plan (1) History of colon cancer: Code(s): Z85.038 - Personal history of other malignant neoplasm of large intestine Status: Acute Assessment and Plan: Patient has a history of colon cancer status post right hemicolectomy 1 year ago. Patient presents today for follow-up screening colonoscopy for surveillance purposes further recommendations will be given after colonoscopy. GI Consult Note Consult date/time: 10/10/21 08:03 HPI: Sharron Barros is a 61 year old male Presents for follow-up colonoscopy. Patient has a history of colon cancer resected from the right colon 1 year ago. He reports he has done well. Currently felt to be free of disease. His weight appetite bowel movements are normal. He denies abdominal pain. He has had no bleeding. Bowel habits returned to normal. Review of Systems Review of Systems: All systems reviewed & are unremarkable except as noted in HPI and below PMFSH Past Medical History Medical History (Updated 10/10/21 @ 08:04 by Yoel Woods MD) Colonic mass (~06/2020) GERD (gastroesophageal reflux disease) History of atrial fibrillation (Unknown) History of skin cancer Hyperlipidemia Hypertension (Unknown) Surgical History Surgical History H/O colonoscopy History of esophagogastroduodenoscopy History of lipoma History of right hemicolectomy 07/18/20 lap right hemocholectomy Social History Social History Smoking status: Never smoker Smokeless tobacco user: chewing tobacco Second hand tobacco smoke exposure: No Additional smoking assessment comments: CHEWING TOBACCO X 10 YRS ON AND OFF Alcohol intake: current Drinks per week: 8 Alcohol use details: BEERS Substance use: never Substance use type: does not use Living arrangements: with family Gender identity (if verbalized by the patient): Male Sexual Orientation (if Verbalized by the Patient): Straight or Heterosexual Spiritual care concerns: No Meds Home Medications and Allergies Home Medications Medication Instructions Recorded Confirmed Type aspirin [Adult Low Dose Aspirin] 81 mg PO HS 07/01/20 10/10/21 History metoprolol tartrate 25 mg PO BID 07/01/20 10/10/21 History rosuvastatin 10 mg PO HS 07/01/20 10/10/21 History apixaban [Eliquis] 5 mg PO BID 09/25/21 10/10/21 History Allergies Allergy/AdvReac Type Severity Reaction Status Date / Time No Known Allergies Allergy Verified 10/10/21 07:57 Vital Signs Vital Signs - 24 hr 10/10/21 08:00 Temperature 96.5 F L Pulse Rate 81 Respiratory Rate 16 Blood Pressure 132/106 H Pulse Oximetry 99 Exam Narrative: Physical exam reveals patient to be alert. Vital signs stable. HEENT exam is unremarkable. Patient is anicteric. Lungs are clear to auscultation and percussion. Heart is without murmur or extra sounds. Abdominal exam bowel sounds are present soft nontender with no hepatosplenomegaly. Digital external rectal exam is normal.
[2021-10-10] MEDS: LACTATED RINGERS 1,000 ML 150 ML IV CONT (08:09)
[2021-10-10 09:18] VITALS: BP 109/76; PULSE 65; RESP 13; O2SAT 98
[2021-10-10 09:28] VITALS: BP 108/72; PULSE 63; RESP 12; O2SAT 98
[2021-10-10 09:38] VITALS: BP 123/91; PULSE 70; RESP 24; O2SAT 98
== END 2021-10-10 09:55 | disposition home or self-care (01) ==
PROVIDERS: PCP Internal Medicine; Visit Provider Internal Medicine Gastroenterology
PROC: 0DJD8ZZ Inspection of Lower Intestinal Tract, Via Natural or Artificial Opening Endoscopic (ICD-10-PCS; CPT 45378; principal; 2021-10-10 09:15)
DX: Z12.11 Encounter for screening for malignant neoplasm of colon (principal); K64.8 Other hemorrhoids; Z86.010 Personal history of colon polyps; Z90.49 Acquired absence of other specified parts of digestive tract; Z98.0 Intestinal bypass and anastomosis status; E78.5 Hyperlipidemia, unspecified; I10 Essential (primary) hypertension; K21.9 Gastro-esophageal reflux disease without esophagitis; F17.220 Nicotine dependence, chewing tobacco, uncomplicated; Z79.01 Long term (current) use of anticoagulants; Z79.82 Long term (current) use of aspirin
CPT/HCPCS: 45378; J2704; J7120

== ENCOUNTER 2022-02-27 15:52 | Outpatient (CLI) | payer OTHER, SELFPAY ==
[2022-02-27 16:19] LABS: Anion Gap 9 mmol/L (8-16); Blood Urea Nitrogen 20 mg/dL (9-20); Calcium 8.9 mg/dL (8.4-10.2); Carbon Dioxide 23 mmol/L (22-30); Chloride 106 mmol/L (98-107); Estimated Glomerular Filt Rate > 60; Glucose 97 mg/dL (65-110); Potassium 4.1 mmol/L (3.4-5.0); Sodium 138 mmol/L (137-145)
[2022-02-27 16:51] LABS: Carcinoembryonic Antigen 1.5 ng/mL (0.0-3.0)
== END 2022-02-27 15:53 | disposition home or self-care (01) ==
LOC: ANHLAB 15:53
PROVIDERS: PCP Internal Medicine; Visit Provider Internal Medicine Hematology & Oncology
DX: C18.2 Malignant neoplasm of ascending colon (principal)
CPT/HCPCS: 36415; 80048; 82378

== ENCOUNTER → 2022-08-06 08:10 | Outpatient (CLI) | payer OTHER, SELFPAY ==
--- NOTE | ~2022-08-06 | CT_ITS ---
EXAMINATION: CT abdomen pelvis w con DATE: 08/06/2022 08:48 INDICATION: Malignant neoplasm of ascending colon. TECHNIQUE: Computed tomography (CT) of the abdomen and pelvis was performed with 100 mL Omnipaque 350 intravenous contrast. Automated exposure control and iterative reconstruction technique were employe d. The dose-length product was 875.76 mGy-cm. COMPARISON: CT abdomen and pelvis 02/02/2021, abdomen MRI 05/26/2021 FINDINGS: The visualized portions of the lung bases demonstrate mild atelectasis. No pleural effusion . The heart size is normal. No pericardial effusion. There are cysts in the liver measuring up to 18 mm. The gallbladder, spleen, pancreas, adrenal glands, and right kidney are normal. Again seen is a 2 .2 cm hemorrhagic cyst in left kidney. There are bilateral inguinal hernias containing fat. There are changes of right hemicolectomy. There are no pathologically enlarged lymph nodes. There is no free i ntraperitoneal fluid. There is a benign bone island in proximal right femur. There is moderate lower lumbar spondylosis. IMPRESSION: 1. No evidence of metastatic disease. Reviewed, dictated and finalized at location B.
[2022-08-06 08:43] LABS: Estimated Glomerular Filt Rate > 60
== END ==
PROVIDERS: PCP Internal Medicine; Visit Provider Internal Medicine Hematology & Oncology
DX: C18.2 Malignant neoplasm of ascending colon (principal)
CPT/HCPCS: 74177; Q9967

== ENCOUNTER 2022-08-31 15:32 | Outpatient (CLI) | payer OTHER, SELFPAY ==
[2022-08-31 16:08] LABS: Basophils Percent Auto 0.7 % (0.2-1.2); Eosinophils Absolute Auto 0.1 K/mm3 (0-0.3); Hematocrit 47.2 % (42.0-52.0); Hemoglobin 16.5 g/dL (14.0-18.0); Immature Granulocyte Absolute 0.02 K/mm3 (0.00-0.031); Immature Granulocyte Percent A 0.3 % (0-0.5); Lymphocytes Absolute Auto 2.77 K/mm3 (0.9-3.2); Lymphocytes Percent Auto 46.4 % (18.3-44.2); Mean Corpuscular Hemoglobin 32.9 pg (26-34); Mean Corpuscular Volume 94.2 fl (80-100); Mean Platelet Volume 9.3 fl (7.4-10.4); Monocytes Absolute Auto 0.5 K/mm3 (0.1-0.6); Monocytes Percent Auto 7.7 % (2.6-8.5); Neutrophils Absolute Auto 2.6 K/mm3 (1.3-6.7); Neutrophils Percent Auto 43.9 % (45.5-73.1); Platelet Count Result 191 k/mm3 (150-375); Red Blood Count 5.01 M/mm3 (4.6-6.20); Red Cell Distribution Width 12.3 % (11.5-14.5)
[2022-08-31 16:11] LABS: Alanine Aminotransferase 34 U/L (6-50); Albumin Level 4.4 g/dL (3.5-5.1); Alkaline Phosphatase 59 U/L (38-126); Anion Gap 11 mmol/L (8-16); Aspartate Amino Transferase 32 U/L (17-59); Bilirubin,Total 0.7 mg/dL (0.2-1.3); Blood Urea Nitrogen 17 mg/dL (9-20); Calcium 8.6 mg/dL (8.4-10.2); Carbon Dioxide 22 mmol/L (22-30); Chloride 107 mmol/L (98-107); Estimated Glomerular Filt Rate > 60; Glucose 96 mg/dL (65-110); Potassium 3.9 mmol/L (3.4-5.0); Sodium 140 mmol/L (137-145)
[2022-08-31 16:42] LABS: Carcinoembryonic Antigen 1.6 ng/mL (0.0-3.0)
== END 2022-08-31 15:33 | disposition home or self-care (01) ==
PROVIDERS: PCP Internal Medicine; Visit Provider Internal Medicine Hematology & Oncology
DX: C18.2 Malignant neoplasm of ascending colon (principal)
CPT/HCPCS: 36415; 80053; 82378; 85025

== ENCOUNTER 2023-03-06 13:09 | Outpatient (CLI) | payer OTHER, SELFPAY ==
[2023-03-06 13:22] LABS: Basophils Percent Auto 0.6 % (0.2-1.2); Eosinophils Absolute Auto 0.1 K/mm3 (0-0.3); Eosinophils Percent Auto 0.8 % (0-4.4); Hematocrit 47.1 % (42.0-52.0); Hemoglobin 16.8 g/dL (14.0-18.0); Immature Granulocyte Absolute 0.01 K/mm3 (0.00-0.031); Immature Granulocyte Percent A 0.2 % (0-0.5); Lymphocytes Absolute Auto 2.69 K/mm3 (0.9-3.2); Lymphocytes Percent Auto 43.7 % (18.3-44.2); Mean Corpuscular HGB Conc 35.7 g/dl (32-36); Mean Corpuscular Hemoglobin 32.9 pg (26-34); Mean Corpuscular Volume 92.2 fl (80-100); Mean Platelet Volume 8.8 fl (7.4-10.4); Monocytes Absolute Auto 0.5 K/mm3 (0.1-0.6); Monocytes Percent Auto 7.5 % (2.6-8.5); Neutrophils Absolute Auto 2.9 K/mm3 (1.3-6.7); Neutrophils Percent Auto 47.2 % (45.5-73.1); Platelet Count Result 198 k/mm3 (150-375); Red Blood Count 5.11 M/mm3 (4.6-6.20); Red Cell Distribution Width 11.9 % (11.5-14.5); White Blood Count 6.2 K/mm3 (4.5-10.0)
[2023-03-06 16:46] LABS: Alanine Aminotransferase 35 U/L (6-50); Albumin Level 4.5 g/dL (3.5-5.1); Alkaline Phosphatase 58 U/L (38-126); Anion Gap 9 mmol/L (8-16); Aspartate Amino Transferase 29 U/L (17-59); Bilirubin,Total 0.7 mg/dL (0.2-1.3); Blood Urea Nitrogen 15 mg/dL (9-20); Calcium 8.8 mg/dL (8.4-10.2); Carbon Dioxide 26 mmol/L (22-30); Chloride 106 mmol/L (98-107); Estimated Glomerular Filt Rate > 60; Glucose 89 mg/dL (65-110); Potassium 3.7 mmol/L (3.4-5.0); Sodium 141 mmol/L (137-145)
[2023-03-06 17:17] LABS: Carcinoembryonic Antigen 1.5 ng/mL (0.0-3.0)
== END 2023-03-06 13:10 | disposition home or self-care (01) ==
LOC: ANHLAB 13:11
PROVIDERS: PCP Physician Assistant Medical; Visit Provider Internal Medicine Hematology & Oncology
DX: C18.2 Malignant neoplasm of ascending colon (principal)
CPT/HCPCS: 36415; 80053; 82378; 85025; 88184

== ENCOUNTER 2023-09-04 14:49 | Outpatient (CLI) | payer OTHER, SELFPAY ==
[2023-09-04 15:05] LABS: Basophils Percent Auto 0.5 % (0.2-1.2); Eosinophils Absolute Auto 0.1 K/mm3 (0-0.3); Eosinophils Percent Auto 0.8 % (0-4.4); Hematocrit 47.7 % (42.0-52.0); Hemoglobin 16.7 g/dL (14.0-18.0); Immature Granulocyte Absolute 0.01 K/mm3 (0.00-0.031); Immature Granulocyte Percent A 0.2 % (0-0.5); Lymphocytes Absolute Auto 2.27 K/mm3 (0.9-3.2); Lymphocytes Percent Auto 38.5 % (18.3-44.2); Mean Corpuscular Hemoglobin 32.9 pg (26-34); Mean Corpuscular Volume 94.1 fl (80-100); Mean Platelet Volume 8.7 fl (7.4-10.4); Monocytes Absolute Auto 0.5 K/mm3 (0.1-0.6); Monocytes Percent Auto 7.6 % (2.6-8.5); Neutrophils Absolute Auto 3.1 K/mm3 (1.3-6.7); Neutrophils Percent Auto 52.4 % (45.5-73.1); Platelet Count Result 207 k/mm3 (150-375); Red Blood Count 5.07 M/mm3 (4.6-6.20); Red Cell Distribution Width 12.7 % (11.5-14.5); White Blood Count 5.9 K/mm3 (4.5-10.0)
[2023-09-04 20:51] LABS: Alanine Aminotransferase 29 U/L (6-50); Albumin Level 4.6 g/dL (3.5-5.1); Alkaline Phosphatase 58 U/L (38-126); Anion Gap 4 mmol/L (8-16); Aspartate Amino Transferase 27 U/L (17-59); Bilirubin,Total 0.8 mg/dL (0.2-1.3); Blood Urea Nitrogen 14 mg/dL (9-20); Calcium 9.1 mg/dL (8.4-10.2); Carbon Dioxide 29 mmol/L (22-30); Chloride 105 mmol/L (98-107); Estimated Glomerular Filt Rate > 60; Glucose 87 mg/dL (65-110); Potassium 4.2 mmol/L (3.4-5.0); Sodium 138 mmol/L (137-145)
[2023-09-05 15:02] LABS: Carcinoembryonic Antigen 1.9 ng/mL (0.0-3.0)
== END 2023-09-04 14:50 | disposition home or self-care (01) ==
PROVIDERS: PCP Physician Assistant Medical; Visit Provider Internal Medicine Hematology & Oncology
DX: C18.2 Malignant neoplasm of ascending colon (principal)
CPT/HCPCS: 36415; 80053; 82378; 85025

== ENCOUNTER 2024-06-09 15:37 | Outpatient (CLI) | payer OTHER, SELFPAY ==
[2024-06-09 15:54] LABS: Basophils Percent Auto 0.6 % (0.2-1.2); Eosinophils Absolute Auto 0.1 K/mm3 (0-0.3); Eosinophils Percent Auto 0.8 % (0-4.4); Hematocrit 48.5 % (42.0-52.0); Hemoglobin 16.9 g/dL (14.0-18.0); Immature Granulocyte Absolute 0.02 K/mm3 (0.00-0.031); Immature Granulocyte Percent A 0.3 % (0-0.5); Lymphocytes Absolute Auto 2.43 K/mm3 (0.9-3.2); Lymphocytes Percent Auto 38.8 % (18.3-44.2); Mean Corpuscular HGB Conc 34.8 g/dl (32-36); Mean Corpuscular Hemoglobin 32.3 pg (26-34); Mean Corpuscular Volume 92.6 fl (80-100); Mean Platelet Volume 8.9 fl (7.4-10.4); Monocytes Absolute Auto 0.6 K/mm3 (0.1-0.6); Monocytes Percent Auto 9.3 % (2.6-8.5); Neutrophils Absolute Auto 3.2 K/mm3 (1.3-6.7); Neutrophils Percent Auto 50.2 % (45.5-73.1); Platelet Count Result 202 k/mm3 (150-375); Red Blood Count 5.24 M/mm3 (4.6-6.20); Red Cell Distribution Width 12.1 % (11.5-14.5); White Blood Count 6.3 K/mm3 (4.5-10.0)
[2024-06-09 16:41] LABS: Alanine Aminotransferase 38 U/L (6-50); Albumin Level 4.7 g/dL (3.5-5.1); Alkaline Phosphatase 58 U/L (38-126); Anion Gap 11 mmol/L (4-12); Aspartate Amino Transferase 36 U/L (17-59); Bilirubin,Total 0.7 mg/dL (0.2-1.3); Blood Urea Nitrogen 18 mg/dL (9-20); Calcium 9.1 mg/dL (8.4-10.2); Carbon Dioxide 23 mmol/L (22-30); Chloride 105 mmol/L (98-107); Estimated Glomerular Filt Rate > 60; Glucose 98 mg/dL (65-110); Potassium 4.3 mmol/L (3.4-5.0); Sodium 139 mmol/L (137-145)
[2024-06-09 17:11] LABS: Carcinoembryonic Antigen 2.2 ng/mL (0.0-3.0)
== END 2024-06-09 15:38 | disposition home or self-care (01) ==
PROVIDERS: PCP Nurse Practitioner Family; Visit Provider Internal Medicine Hematology & Oncology
DX: C18.2 Malignant neoplasm of ascending colon (principal)
CPT/HCPCS: 36415; 80053; 82378; 85025

== ENCOUNTER 2024-10-07 03:10 | Day surgery (SDC) | payer OTHER, SELFPAY ==
[2024-09-25 14:06] VITALS: BMI 28.9
--- NOTE | 2024-09-25 15:02 | PC.NURSE ---
Spoke with PATIENT regarding medication ELIQUIS. Pt. verbalizes understanding that the last dose is to be taken on 10/04/2024 and the Endoscopist will instruct them when to restart after the procedure.
[2024-10-07 07:11] VITALS: BP 118/71; PULSE 82; RESP 18; TEMP 36.1; O2SAT 96
[2024-10-07] MEDS: LACTATED RINGERS 1,000 ML 150 ML IV CONT (07:21)
--- NOTE | 2024-10-07 08:22 | P.PNAN_ITS ---
Anes - Initial Pre Proc Eval Procedure: Operation Date: 10/07/24 08:30 Proposed Procedures p Colonoscopy - Vineet Blackman MD Date/Time: 10/07/24 08:22 Surgeon: Vineet Blackman MD Pre Op Diagnosis: Pers. Hx. colon CA Patient Data Age: 64 Gender: M Height: 1.83 m Weight: 96.4 kg Last Vital Signs Temp 36.1 C L 10/07/24 07:11 Pulse 82 10/07/24 07:11 Resp 18 10/07/24 07:11 BP 118/71 10/07/24 07:11 Pulse Ox 96 10/07/24 07:11 O2 Del Method Room Air 10/07/24 07:11 Allergies Allergy/AdvReac Type Severity Reaction Status Date / Time No Known Allergies Allergy Verified 10/07/24 07:09 Home Medications Medication Instructions Recorded Confirmed Type apixaban 5 mg tablet (Eliquis) 5 mg PO BID #90 tabs 04/23/23 10/07/24 Rx losartan 25 mg tablet See Rx Instructions .Route 06/25/24 10/07/24 Rx .COMPLEX #90 tabs rosuvastatin 10 mg tablet See Rx Instructions .Route 09/10/24 10/07/24 Rx .COMPLEX #90 tabs Coq10 Gummy 1 gummy PO DAILY 09/25/24 10/07/24 History Patient hx anesthesia problems: none Family hx anesthesia problems: none Results Review: All pre-operative results and documents have been reviewed as part of the pre- operative evaluation. [facility] Past Medical History Medical History Colonic mass (~06/2020) GERD (gastroesophageal reflux disease) History of atrial fibrillation (Unknown) cardioversion 2020 & May 2023, Dr. Dutta; Cardiac ablation 08/06/[address] Woods, 2019 History of skin cancer melanoma left shoulder & mid back Hyperlipidemia Hypertension (Unknown) Surgical History Surgical History H/O colonoscopy History of esophagogastroduodenoscopy History of lipoma History of right hemicolectomy 07/18/20 lap right hemocholectomy Social History Social History (Reviewed 10/07/24 @ 08:22 by DANA Arango Social History: Very confident with medical forms Smoking status: Never smoker Tobacco type: smokeless tobacco Smokeless tobacco user: chewing tobacco Second hand tobacco smoke exposure: No Additional smoking assessment comments: CHEWING TOBACCO X 10 YRS ON AND OFF Alcohol intake: current Drinks per week: 10 Alcohol use details: BEERS Substance use: never Substance use type: does not use Do You Feel Safe in your Home?: Yes Lack of Transportation: No Lack of Food: Never True Current Housing: I Have Housing Concerned About Future Housing: No Difficulty Paying Gas/Electric Bills: No Difficulty Paying for Meds: No Currently Unemployed: No Education: Bachelor's Degree Difficulty w/ Childcare or Family Care: No Living arrangements: with family Occupation/Education: occupation Gender identity (if verbalized by the patient): Male Sexual Orientation (if Verbalized by the Patient): Straight or Heterosexual Spiritual care concerns: No Anes - Eval Final PreProcedure Day of Procedure 10/07/24 08:22 Patient weight: overweight Heart: regular rate and rhythm Lungs: clear to auscultation Airway: Mallampati scale class II Neurological: alert and oriented Last oral intake: >/= 8 hours ASA classification: III Emergent: no Anesthetic plan: proceed Anesthesia type and monitoring: general GIVS Results Review: All pre-operative results and documents have been reviewed as part of the pre- operative evaluation. Informed Consent: The patient's anesthetic plan and its attendant risks and benefits were discussed with the patient/family/POA. Questions were solicited and answers provided to the satisfaction of the patient/family/POA.
--- NOTE | 2024-10-07 08:22 | PM.HPGS ---
History of Present Illness History of Present Illness Consent: Risks, benefits, and alternatives have been discussed and questions answered. Patient agrees to proceed with procedure. Chief complaint: Pers. Hx. colon CA Narrative: Sharron Barros is a 64 year old male with rt colon cancer 2019 s/p surgery, last colonoscopy 2020. Denies any new symptom. Review of Systems Review of Systems: All systems reviewed & are unremarkable except as noted in HPI and below PMFSH Past Medical History Medical History Colonic mass (~06/2020) GERD (gastroesophageal reflux disease) History of atrial fibrillation (Unknown) cardioversion 2020 & May 2023, Dr. Dutta; Cardiac ablation 08/06/[address] Woods, 2019 History of skin cancer melanoma left shoulder & mid back Hyperlipidemia Hypertension (Unknown) Surgical History Surgical History H/O colonoscopy History of esophagogastroduodenoscopy History of lipoma History of right hemicolectomy 07/18/20 lap right hemocholectomy Social History Social History Social History: Very confident with medical forms Smoking status: Never smoker Tobacco type: smokeless tobacco Smokeless tobacco user: chewing tobacco Second hand tobacco smoke exposure: No Additional smoking assessment comments: CHEWING TOBACCO X 10 YRS ON AND OFF Alcohol intake: current Drinks per week: 10 Alcohol use details: BEERS Substance use: never Substance use type: does not use Do You Feel Safe in your Home?: Yes Lack of Transportation: No Lack of Food: Never True Current Housing: I Have Housing Concerned About Future Housing: No Difficulty Paying Gas/Electric Bills: No Difficulty Paying for Meds: No Currently Unemployed: No Education: Bachelor's Degree Difficulty w/ Childcare or Family Care: No Living arrangements: with family Occupation/Education: occupation Gender identity (if verbalized by the patient): Male Sexual Orientation (if Verbalized by the Patient): Straight or Heterosexual Spiritual care concerns: No Meds Home Medications and Allergies Home Medications Medication Instructions Recorded Confirmed Type apixaban 5 mg tablet (Eliquis) 5 mg PO BID #90 tabs 04/23/23 10/07/24 Rx losartan 25 mg tablet See Rx Instructions .Route 06/25/24 10/07/24 Rx .COMPLEX #90 tabs rosuvastatin 10 mg tablet See Rx Instructions .Route 09/10/24 10/07/24 Rx .COMPLEX #90 tabs Coq10 Gummy 1 gummy PO DAILY 09/25/24 10/07/24 History Allergies Allergy/AdvReac Type Severity Reaction Status Date / Time No Known Allergies Allergy Verified 10/07/24 07:09 Vital Signs Vital Signs - 24 hr 10/07/24 07:11 Temperature 97 F L Pulse Rate 82 Respiratory Rate 18 Blood Pressure 118/71 Pulse Oximetry 96 Oxygen Delivery Room Air Exam Const: General: comfortable and no acute distress HENMT: Face/Nose/Sinus: Normal nares present Eyes: General: appearance normal, both eyes and all related structures Neck: Neck: no JVD Resp: Auscultation: clear to auscultation bilaterally Cardio: Rate: regular rate Rhythm: regular rhythm GI: Inspection: non-distended GI Palp: Yes Soft to palpation Skin: General skin exam: normal color Neuro: General: gait normal Speech: normal speech Extrem: General: normal to inspection Psych: Mental Status: mental status grossly normal Assessment and Plan Assessment and plan (1) History of colon cancer: Code(s): Z85.038 - Personal history of other malignant neoplasm of large intestine Status: Acute Assessment and Plan: colonoscopy
[2024-10-07 08:40] VITALS: BP 111/62; PULSE 70; RESP 14; O2SAT 96
[2024-10-07 08:50] VITALS: BP 112/74; PULSE 75; RESP 18; O2SAT 99
[2024-10-07 09:00] VITALS: BP 124/84; PULSE 64; RESP 18; O2SAT 98
== END 2024-10-07 09:13 | disposition home or self-care (01) ==
PROVIDERS: PCP Nurse Practitioner Family; Referring Provider Internal Medicine Hematology & Oncology; Visit Provider Internal Medicine Gastroenterology
PROC: 0DJD8ZZ Inspection of Lower Intestinal Tract, Via Natural or Artificial Opening Endoscopic (ICD-10-PCS; CPT 45378; principal; 2024-10-07 08:30)
DX: Z12.11 Encounter for screening for malignant neoplasm of colon (principal); D12.4 Benign neoplasm of descending colon; K64.8 Other hemorrhoids; E78.5 Hyperlipidemia, unspecified; I10 Essential (primary) hypertension; K21.9 Gastro-esophageal reflux disease without esophagitis; I48.91 Unspecified atrial fibrillation; F17.220 Nicotine dependence, chewing tobacco, uncomplicated; Z79.01 Long term (current) use of anticoagulants; Z98.890 Other specified postprocedural states; Z98.0 Intestinal bypass and anastomosis status; Z90.49 Acquired absence of other specified parts of digestive tract; Z85.828 Personal history of other malignant neoplasm of skin; Z85.038 Personal history of other malignant neoplasm of large intestine
CPT/HCPCS: 45385; 88305; J2704; J7120

== ENCOUNTER 2025-05-22 08:36 | Outpatient (CLI) | payer OTHER, SELFPAY ==
--- OUTSIDE RECORDS SUMMARY | 2025-05-22 08:40 | XMS_ITS | Encounter Summary ---
Author Organization [facility] Address [address] [place] [id number] Care Team Providers Care Cable Placer Name Role Phone Antoine Gama MD Unavailable [phone] Antoine Gama MD Primary Care Provider [phone] Joselin Tapia Primary Care Provider [phone] Encounter Details Date Type Department Care Team (Late st Contact Info) Description 06/08/2021 Hospital Follow-up Call [facility] Telemetry Unit [facility] [place] [address] Samy Flynn RN Social History Tobacco Use Types Packs/Day Years Used Date Smoking Tobacco: Never Smokeless Tobacco: Current Alcohol Use Standard Drinks/Week Comments Yes 0 (1 standard drink = 0.6 oz pur e alcohol) social AUDIT-C Answer Date Recorded Frequency of Alcohol Consumption Never 09/08/2019 Average Number of Drinks Not on file 019 Frequency of Binge Drinking Not on file 03/2019 Sex and Gender Information Value Date Recorded Sex Assigned at Male 12/14/2024 8:10 AM [employer] Sex Male 7:41 PM CDT Gender Identity Not on file Sexual Orientation Not on file COVID-19 Exposure Response Date Recorded In the last month, have you been in contact with someone who was confirmed or suspected to have Coronavirus / COVID-19? No / Unsure 06/06/2021 4:31 PM CDT documented as of this encounter Functional Status * RETIRED Are you deaf or do you have serious difficulty hearing Answer Date of Assessment Author Status No 06/06/2021 4:00 PM CDT Activ e * RETIRED Are you blind or do you have serious difficulty seeing, even when wearing glasses? Answer Date of Assessment Author Status No 06/06/2021 4:00 PM CDT Activ e * Do you have serious difficulty walking or climbing stairs? Answer Date of Assessment Author Status No 06/06/2021 4:00 PM JAMAALT Ousmane Hartmann RN Active * Do you have difficulty dressing or bathing? Answer Date of Assessment Author Status No 06/06/2021 4:00 PM JAMAALT Ousmane Hartmann RN Active * Because of a physical, mental, or emotional condition, do you have difficulty doing errands alone such as visiting a doctor's office or shopping? Answer Date of Assessment Author Status No 06/06/2021 4:00 PM Ousmane Deng RN Active documented as of this encounter Mental Status * Because of a physical, mental, or emotional condition, do you have serious difficulty concentrating, remembering, or making decisions? Answer Entry Date Author Status No 06/06/2021 4:00 PM Ousmane Deng RN Active documented in this encounter Plan of Treatment Upcoming Encounters Date Type Department Care Team (Late st Contact Info) Description 09/22/2025 2:15 PM [employer] Office Visit [facility] [address] [place] [address] Christine Min MD [facility] [address] [place], [place] [id number] 12/23/2025 9:15 AM [employer] Office Visit [facility] [address] [place] [id number] FNP [address] [facility] [address] [place], [place] [id number] documented as of this encounter Goals Goal Patient Goal Type Associated Problems Recent Progress Patient-Stated? Author Health - patient able to perform ADLs independently General No Sarah Levy, RN Safety Patient/family will have appropriate support at home upon discharge General No Erica De Santiago, [place] documented as of this encounter Visit Diagnoses Not on filedocumented in this encounter Care Teams Cable Placer Relationship Specialty Start Date End Date Antoine Gama MD [address] [place] [id number] PCP - General INTERNAL MEDICINE 06/04/21 07/18/22 Joselin Tapia PA [address] [place] [id number] PCP - General PHYSICIAN FINANCIAL COMPLIANCE OFFICER 07/19/22 Antoine Gama MD [address] [place] [id number] INTERNAL MEDICINE 02/22/21 documented as of this encounter
--- OUTSIDE RECORDS SUMMARY | 2025-05-22 08:40 | XMS_ITS | Clinical Summary ---
Author Organization [facility] Address [place] [address] Care Team Providers Care Marine Railway Operator Name Role Phone Antoine Gama MD Unavailable [phone] Joselin Tapia Primary Care Provider Allergies Active Allergy Reactions Criticality Noted Date Comments Latex Itching,Rash,Swelling Low 07/11/2022 Medications Coenzyme Q10 (COQ10 GUMMIES ADULT OR) Take by mouth daily. Active apixaban (ELIQUIS) 5 MG tablet Take 1 tablet (5 mg total) by mouth 2 (two) times daily. 180 tablet 3 12/23/2024 Active losartan (COZAAR) 25 MG tablet Take 1 tablet (25 mg total) by mouth daily. 90 tablet 3 03/23/2025 Active rosuvastatin (CRESTOR) 10 MG tablet Take 1 tablet (10 mg total) by mouth nightly. 90 tablet 3 03/23/2025 Active Active Problems Problem Noted Date Diagnosed Date Atrial fibrillation with rap id ventricular response ([facility] HHS/HCC) 05/21/2023 Atrial fibrillation with RVR ([facility] HHS/HCC) 0 06/04/2021 Overlapping malignant neoplasm of colon ([facility]) 06/01/2021 Encounters Date Type Department Care Team Description 03/23/2025 Telephone [facility], [address] [address] Dawood Dutta MD Refill Request ([facility]) 03/02/2025 7:05 AM CDT Laboratory Only [facility] [address] [place] [address] Gurinder Freeman MD 03/02/2025 Travel from Last 3 Months Immunizations Immunization Administration Dates Next Due MODERNA COVID-19 (12+) MRNA, LNP-S, PF, 100 MCG/ 0.5 ML DOSE 03/14/2021,02/14/2021 Tdap (Adacel) 09/08/2019 Family History Medical History Relation Comments Heart Disease Father Cancer Mother Relation Status Comments Father Mother Social History Tobacco Use Types Packs/Day Years Used Date Smoking Tobacco: Never Smokeless Tobacco: Current Tobacco Cessation:Ready to Q uit: Not Asked; Counseling Given: Not Answered Alcohol Use Standard Drinks/Week Comments Yes 7 (1 standard drink = 0.6 oz pur e alcohol) Humiliation, Afraid, Rape, and Kick questionnair e Answer Date Recorded Within the last year, have y ou been afraid of your partner or ex-partner? No 05/21/2023 Within the last year, have y ou been humiliated or emotionally abused in other ways by your partner or ex-partner? No Within the last year, have y ou been kicked, hit, slapped, or otherwise physically hurt by your partner or ex-partner? No 05/21/2023 Within the last year, have y ou been raped or forced to have any kind of sexual activity by your partner or ex-partner? No 05/21/2023 AUDIT-C Answer Date Recorded Frequency of Alcohol Consumption Never 09/08/2019 Average Number of Drinks Not on file 019 Frequency of Binge Drinking Not on file 03/2019 Overall Financial Resource Strain (CARDIA) Answe r Date Recorded How hard is it for you to pa y for the very basics like food, housing, medical care, and heating? Not hard at all 05/21/2023 Hunger Vital Sign Answer Date Recorded Within the past 12 months, y ou worried that your food would run out before you got the money to buy more. Never true 05/21/20 23 Within the past 12 months, t he food you bought just didn't last and you didn't have money to get more. Never true 05/21/2023 PRAPARE - Transportation Answer Date Re corded In the past 12 months, has l ack of transportation kept you from medical appointments or from getting medications? No 05/04 In the past 12 months, has l ack of transportation kept you from meetings, work, or from getting things needed for daily living? No 05/21/2023 Housing Stability Vital Sign Answer Jacinto e Recorded In the last 12 months, was t here a time when you were not able to pay the mortgage or rent on time? No 05/21/2023 In the last 12 months, how many places have you lived? 1 05/21/2023 In the last 12 months, was t here a time when you did not have a steady place to sleep or slept in a fpc (including now)? No 05/21/2023 Sex and Gender Information Value Date Recorded Sex Assigned at Male 12/14/2024 8:10 AM DIRECTOR BUSINESS DEVELOPMENT Legal Sex Male 7:41 PM CDT Gender Identity Not on file Sexual Orientation Not on file Last Filed Vital Signs Vital Sign Reading Time Taken Comments Blood Pressure 124/80 12/17/2024 9:12 AM DIRECTOR BUSINESS DEVELOPMENT Pulse 74 12/17/2024 9:12 AM DIRECTOR BUSINESS DEVELOPMENT Temperature 36.3 C (97.4 F) 08/06/2023 9:53 AM CDT Respiratory Rate 15 08/06/2023 1:00 PM CDT Oxygen Saturation 96% 09/09/2024 2:20 PM DIRECTOR BUSINESS DEVELOPMENT Inhaled Oxygen Concentration - - Weight 97.1 kg (214 lb) 12/17/2024 9:12 AM DIRECTOR BUSINESS DEVELOPMENT Height 182.9 cm (6') 12/17/2024 9:12 AM DIRECTOR BUSINESS DEVELOPMENT Body Mass Index 29.02 12/17/2024 9:12 AM DIRECTOR BUSINESS DEVELOPMENT Plan of Treatment Upcoming Encounters Date Type Department Care Team (Late st Contact Info) Description 09/22/2025 2:15 PM DIRECTOR BUSINESS DEVELOPMENT Office [facility] [address] [facility] [address] Christine Min MD [facility]. [facility] [address] [place] [address] 12/23/2025 9:15 AM DIRECTOR BUSINESS DEVELOPMENT Office Visit [facility] [address] [place] [address], RISHI [address] [facility] [address] [place] [address] Health Maintenance Due Date Last Done Comments Hepatitis C 1977 Pneumococcal Vaccine: 50+ Years (1 of 2 - PCV) 1978 Zoster Vaccines (1 of 2) 2009 RSV Immunization or 60+ Years (1 - Risk 60-74 years 1-dose series) 2019 COVID-19 Vaccine (3 - 2023-2 5 season) 2024 03/14/2021, 02/14/2021 DTaP, Tdap and Td Vaccines ( 2 - Td or Tdap) 09/08/2029 09/08/2019 Meningococcal B Vaccine Aged Out No l onger eligible based on patient's age to complete this topic Meningococcal Vaccine Aged Out No behzad delphine eligible based on patient's age to complete this topic RSV Immunizations Under 20 Months Aged Out No longer eligible b ased on patient's age to complete this topic Goals Goal Patient Goal Type Associated Problems Recent Progress Patient-Stated? Author Health - patient able to perform ADLs independently General No Sarah Levy, RN Safety Patient/family will have appropriate support at home upon discharge General No Erica De Santiago, MONTSERRAT Patient will return to prior living situation and remain independent in ADLs upon discharge from hospital Lifestyle No Trang Sanchez, speech correction consultant Procedure Name Priority Date/Time Associated Diagnosis Comments PROSTATE SPECIFIC ANTIGEN,SCREENING Routine 03/02/2025 3:00 AM CDT HEALTH FAIR WITH LIPID Routine 03/02/2025 3:00 AM CDT from Last 3 Months Results * (ABNORMAL) HEALTH FAIR WITH LIPID (03/02/2025 3:00 AM CDT) WBC 4.84 4.4 - 11.0 x10'3/uL 03/02/2025 9:20 AM CDT [facility] RBC 5.03 4.50 - 5.90 x10'6/uL 03/02/2025 9:20 AM CDT [facility] HGB 16.2 14.0 - 17.5 G/DL 03/02/2025 9:20 AM CDT [facility] HCT 46.7 41.5 - 50.4 % 03/02/2025 9:20 AM CDT [facility] MCV 92.8 80.0 - 96.0 FL 03/02/2025 9:20 AM CDT [facility] MCH 32.2(H) 26.5 - 31.4 PG 03/02/2025 9:20 AM CDT [facility] MCHC 34.7 31.9 - 34.8 G/DL 03/02/2025 9:20 AM T [facility] RDW 12.8 12.3 - 14.3 % 03/02/2025 9:20 AM T [facility] PLT 203 151 - 353 x10'3/uL 03/02/2025 9:20 AM T [facility] MPV 9.5(L) 9.7 - 11.9 FL 03/02/2025 9:20 AM CDT [facility] RBC MORPHOLOGY NORMAL 03/02/2025 9:20 AM T [facility] PLT MORPH. NORMAL 03/02/2025 9:20 AM T [facility] WBC MORPHOLOGY NORMAL 03/02/2025 9:20 AM T [facility] LYMPHOCYTES % 46.7(H) 15.8 - 45.0 % 03/02/2025 9:20 AM CDT [facility] NEUTROPHILS % 43.0 42.1 - 71.9 % 03/02/2025 9:20 AM CDT [facility] MONOCYTES % 8.1 5.7 - 12.5 % 03/02/2025 9:20 AM CDT [facility] EOSINOPHILS 1.0 0.0 - 5.6 % 03/02/2025 9:20 AM CDT [facility] BASOPHILS 1.0 0.0 - 1.3 % 03/02/2025 9:20 AM T [facility] ABS. NEUTROPHILS 2.08 1.40 - 6.00 x10'3/uL 03/02/2025 9:20 AM CDT [facility] IMMATURE GRANS % 0.2 0.0 - 0.5 % 03/02/2025 9:20 AM CDT [facility] ABS. LYMPHOCYTES 2.26 0.80 - 4.70 x10'3/uL 03/02/2025 9:20 AM T [facility] GLUCOSE 103(H) 70 - 99 MG/DL 03/02/2025 12:29 PM T [facility] BUN 18 7 - 18 MG/DL 03/02/2025 12:29 PM T [facility] CREATININE S/P/B 1.07 0.7 - 1.3 MG/DL 03/02/2025 12:29 PM T [facility] SODIUM S/P/B 142 136 - 145 MMOL/L 03/02/2025 12:29 PM T [facility] POTASSIUM S/P/B 4.9 3.5 - 5.1 MMOL/L 03/02/2025 12:29 PM T [facility] CHLORIDE S/P/B 108 100 - 108 MMOL/L 03/02/2025 12:29 PM T [facility] CO2 27.0 21 - 32 MMOL/L 03/02/2025 12:29 PM [facility] CALCIUM S/P/B 9.0 8.5 - 10.1 MG/DL 03/02/2025 12:29 PM [facility] BILIRUBIN TOTAL S/P/B 0.6 0.2 - 1.2 MG/DL 03/02/2025 12:29 PM [facility] TOTAL PROTEIN S/P/B 6.9 6.4 - 8.2 G/DL 03/02/2025 12:29 PM [facility] ALBUMIN S/P/B 3.8 3.4 - 5.0 G/DL 03/02/2025 12:29 PM [facility] AST 13(L) 15 - 37 U/L 03/02/2025 12:29 PM [facility] ALT 29 16 - 60 U/L 03/02/2025 12:29 PM [facility] ALKALINE PHOSPHATASE S/P/B 62 50 - 136 U/L 03/02/2025 12:29 PM [facility] ANION GAP 7.0 5 - 15 MMOL/L 03/02/2025 12:29 PM [facility] BUN CREATININE RATIO 16.8 6 - 26 03/02/2025 12:29 PM [facility] A/G RATIO 1.2 1.0 - 2.0 RATIO 03/02/2025 12:29 PM [facility] GFR ESTIMATE 77(L) >90 ML/MIN/1. 73 M2 03/02/2025 12:29 PM [facility] Comment: NOTE: eGFR is not calculated for patients <18 years of age. This is an estimated GFR calculation using the new CKD EPI creatinine equation without race and so does not require a correction factor for race. This estimated GFR should not be used for calculating drug doses. TSH 1.887 0.358 - 3.74 uIU/ML 03/02/2025 12:29 PM T [facility] Comment: HIGH DOSES OF BIOTIN MAY INTERFERE WITH THIS TEST RESULT. CORRELATION TO CLINICAL HISTORY AND PRESENTATION RECOMMENDED. CHOLESTEROL 164 <200.0 MG/DL 03/02/2025 12:29 PM CDT [facility] TRIGLYCERIDES 91 <150 MG/DL 03/02/2025 12:29 PM T [facility] HDL 42 >40.0 MG/DL 03/02/2025 12:29 PM T [facility] LDL (CALCULATED) 104(H) <100 MG/DL 03/02/2025 12:29 PM [facility] NON HDL CHOLESTEROL 122 <130 MG/DL 03/02/2025 12:29 PM [facility] CHOL/HDL RATIO 3.9 0.0 - 4.5 03/02/2025 12:29 PM T [facility] VLDL CALCULATION 18 5 - 55 MG/DL 03/02/2025 12:29 PM [facility] LIPID INTERPRETATION 03/02/2025 12:29 PM [facility] Comment: NIH CONCENSUS REPORT RECOMMENDATIONS: ADULT CHILD LOW RISK: CHOLESTEROL <200 <170 TRIGLYCERIDE <150 --- HDL >=60 --- LDL <100 <110 BORDERLINE: CHOLESTEROL 200-239 170-199 TRIGLYCERIDE 150-199 --- HDL 40-59 --- LDL 100-159 110-129 HIGH RISK: CHOLESTEROL >=240 >=200 TRIGLYCERIDE >=200 --- HDL <40 --- LDL >=160 >=130 03/02/2025 3:00 AM CDT us Gurinder Freeman MD LABORATORY Final Result [facility] [address] [place] [address], [place] [phone] * PROSTATE SPECIFIC ANTIGEN,SCREENING (03/02/2025 3:00 AM CDT) PSA 1.34 <4.00 NG/ML 03/02/2025 12:29 PM CDT [facility] Comment: Test was performed using the Siemens method. Results obtained with other assay methods or kits cannot be used interchangeably with results obtained by the Siemens method. 03/02/2025 3:00 AM CDT Gurinder Freeman MD LABORATORY Final Result [facility] [address] [place] [address], [place] [phone] from Last 3 Months Advance Directives * Full Code (Latest Code Status on File) Date Activated Date Inactivated Comments 08/06/2023 9:44 AM 08/06/2023 3:37 PM * Full Code Date Activated Date Inactivated Comments 05/22/2023 9:26 AM 05/22/2023 5:12 PM * Full Code Date Activated Date Inactivated Comments 05/21/2023 3:02 PM 05/22/2023 9:26 AM * Full Code Date Activated Date Inactivated Comments 06/06/2021 4:39 PM 06/07/2021 4:28 PM * Full Code Date Activated Date Inactivated Comments 06/05/2021 10:04 AM 06/06/2021 1:27 PM Care Teams Marine Railway Operator Relationship Specialty Start Date End Date Joselin Tapia PA [address] [place] [address] PCP - General PHYSICIAN BUSINESS PLANNING DIRECTOR 07/19/22 Antoine Gama MD [address] [place] [phone] INTERNAL MEDICINE 02/22/21
--- OUTSIDE RECORDS SUMMARY | 2025-05-22 08:40 | XMS_ITS | Clinical Summary ---
[facility] Address [address] [facility] [place] [address] Care Team Providers Care American History Professor Name Role Phone Antoine Gama MD Primary Care Provider [phone] Allergies No known active allergies Medications rosuvastatin (CRESTOR) 10 mg tablet TK 1 T PO HS 07/23/2020 Active apixaban (ELIQUIS) 5 mg tablet Take 5 mg by mouth 2 times daily. 07/03/2021 Active amiodarone (CORDARONE) 200 mg tablet Take 200 mg by mouth daily. 05/21/2023 Active Active Problems Problem Noted Date Diagnosed Date Overlapping malignant neoplasm of colon 06/01/20 21 Encounters Date Type Department Care Team Description 05/19/2025 External Device Data STL ABSTRACTION Provider, Abstract 04/20/2025 External Device Data STL ABSTRACTION Provider, Abstract 04/06/2025 External Device Data STL ABSTRACTION Provider, Abstract 03/30/2025 External Device Data STL ABSTRACTION Provider, Abstract 03/24/2025 External Device Data STL ABSTRACTION Provider, Abstract 03/23/2025 External Device Data STL ABSTRACTION Provider, Abstract from Last 3 Months Social History Tobacco Use Types Packs/Day Years Used Date Smoking Tobacco: Never Smokeless Tobacco: Current Chew Tobacco Cessation:Ready to Q uit: Not Asked; Counseling Given: Not Answered Alcohol Use Standard Drinks/Week Comments Yes 0 (1 standard drink = 0.6 oz pur e alcohol) OCCASIONLLY Sex and Gender Information Value Date Recorded Sex Assigned at Not on file Legal Sex Male 3:47 PM CDT Gender Identity Not on file Sexual Orientation Not on file Last Filed Vital Signs Vital Sign Reading Time Taken Comments Blood Pressure 141/93 06/10/2024 3:38 PM CDT Pulse 66 06/10/2024 3:35 PM CDT Temperature 36.6 C (97.8 F) 06/10/2024 3:35 PM CDT Respiratory Rate 14 06/10/2024 3:35 PM CDT Oxygen Saturation 97% 06/10/2024 3:35 PM CDT Inhaled Oxygen Concentration - - Weight 96.6 kg (213 lb) 06/10/2024 3:35 PM CDT Height 182.9 cm (6') 02/27/2022 3:15 PM CDT Body Mass Index 28.89 02/27/2022 3:15 PM CDT Plan of Treatment Upcoming Encounters Date Type Department Care Team (Late st Contact Info) Description 05/24/2025 2:45 PM CDT [facility] [address] [facility] [address] [place] [address] Carlos Gamez MD [address] [facility] [address] [place] [address] Health Maintenance Due Date Last Done Comments Pre-Diabetes and Diabetes Screening 1960 PNEUMOCOCCAL VACCINE 50+ YEA RS (1 of 1 - PCV) 2009 ZOSTER VACCINE (1 of 2) 2009 COVID-19 Vaccine ( - season) 07/05/202409/2021, 02/14/2021 Preventative Visit- Commercial 11/04/2024 INFLUENZA VACCINE (#1) 2025 DTAP/TDAP/TD VACCINES (2 - Td or Tdap) 09/08/2029 RSV VACCINE (60+ or ) (1 - 1-dose 75+ series) 2034 COLORECTAL SCREENING Discontinued 10/07/2024 Colorectal Cancer Screening Discontinued FIT-DNA Q 3 years Discontinued FIT/FOBT Q 1 year Discontinued Flex Sig/CT Colonography Q 5 years Discontinued Procedures Procedure Name Priority Date/Time Associated Diagnosis Comments COLONOSCOPY REPORT Routine 10/07/2024 8: 26 AM DECKHAND MAINTENANCE from Last 3 Months or Most Recently Relevant to Health Maintenance Results * COLONOSCOPY REPORT (10/07/2024 8:26 AM DECKHAND MAINTENANCE) Carlos Gamez MD GI PROCEDURE ORDERABLES Final R esult from Last 3 Months or Most Recently Relevant to Health Maintenance Insurance [address] Care Teams American History Professor Relationship Specialty Start Date End Date Antoine Gama MD [address] [place] [address] [address] [place] [address] PCP - General Internal Medicine 07/27/20
--- OUTSIDE RECORDS SUMMARY | 2025-05-22 08:40 | XMS_ITS | Encounter Summary ---
Author Organization [facility] Address [address] [place] [address] Care Team Providers Care Flatwork Assembler Name Role Phone Antoine Gama MD Unavailable [phone] Antoine Gama MD Primary Care Provider [phone] Joselin Tapia Primary Care Provider [phone] Encounter Details Date Type Department Care Team (Late st Contact Info) Description 04/28/2022 [employer] Message [facility] Patient Accounts [address] [place] [address] [facility] Past Due Balance Social History Tobacco Use Types Packs/Day Years [...] Sex Assigned at Male 12/14/2024 8:10 AM BOX GLUER Legal Sex Male 7:41 PM CDT Gender Identity Not on file Sexual Orientation Not on file documented as of this encounter Functional Status [...] Author Status No 06/06/2021 4:00 PM CDT Ousmane Hartmann RN Active * Do you have difficulty dressing or bathing? Answer Date of Assessment Author Status No 06/06/2021 4:00 PM CDT Ousmane Hartmann RN Active * Because of a physical, mental, or emotional condition, do you have difficulty doing errands alone such as visiting a doctor's office or shopping? Answer Date of Assessment Author Status No 06/06/2021 4:00 PM CDT Ousmane Hartmann RN Active documented as of this encounter Mental Status * Because of a physical, mental, or emotional condition, do you have serious difficulty concentrating, remembering, or making decisions? Answer Entry Date Author Status No 06/06/2021 4:00 PM CDT Ousmane Hartmann RN Active documented in this encounter Plan of Treatment Upcoming Encounters Date Type Department Care Team (Late st Contact Info) Description 09/22/2025 2:15 PM BOX GLUER Office Visit [facility] [address] [place] [address] Christine Min MD Three [facility]. [address] [id number] 12/23/2025 9:15 AM BOX GLUER Office Visit [facility] [address] [place] [address] [address] FNP [address] [place] [address] [place], [place] [address] documented as of this encounter Goals Goal Patient Goal Type Associated Problems Recent Progress Patient-Stated? Author Health - patient able to perform ADLs independently General No Sarah Levy RN Safety Patient/family will have appropriate support at home upon discharge General No Erica De Santiago, MONTSERRAT documented as of this encounter Visit Diagnoses Not on filedocumented in this encounter Care Teams Flatwork Assembler Relationship Specialty Start Date End Date Antoine Gama MD [address] [place] [address] PCP - General INTERNAL MEDICINE 06/04/21 07/18/22 Joselin Tapia PA [address] [place] [address] PCP - General PHYSICIAN DIRECTOR OF CASINO 07/19/22 Antoine Gama MD [address] [place] [address] INTERNAL MEDICINE 02/22/21 documented as of this encounter
--- OUTSIDE RECORDS SUMMARY | 2025-05-22 08:40 | XMS_ITS | Encounter Summary ---
Author Organization [facility] Address [address] [place] [address] Care Team Providers Care Health Club Manager Name Role Phone Antoine Gama MD Unavailable Joselin Tapia Primary Care Provider [phone] Encounter Details Date Type Department Care Team (Late st Contact Info) Description 02/05/2024 [employer] Message [facility] BUSINESS OFFICE [facility] Provider Action Required Social History Tobacco Use Types Packs/Day Years Used Date Smoking Tobacco: Never Smokeless Tobacco: Current Alcohol Use Standard Drinks/Week Comments Yes 7 [...] place to sleep or slept in a nursing home (including now)? No 05/21/2023 Sex and Gender Information Value Date Recorded Sex Assigned at Male 12/14/2024 8:10 AM MANAGER MEDICAL DEVICE Legal Sex Male 7:41 PM CDT Gender Identity Not on file Sexual Orientation Not on file documented as of this encounter Functional Status * Are you deaf or do you have serious difficulty hearing Answer Date of Assessment Author Status No 05/21/2023 4:35 PM JAMAALT Radha Bowman RN Active * Are you blind or do you have serious difficulty seeing, even when wearing glasses? Answer Date of Assessment Author Status No 05/21/2023 4:35 PM Radha Girard , RN Active * Do you have serious difficulty walking or climbing stairs? Answer Date of Assessment Author Status No 05/21/2023 4:35 PM Radha Girard , RN Active * Do you have difficulty dressing or bathing? Answer Date of Assessment Author Status No 05/21/2023 4:35 PM Radha Girard RN Active * Because of a physical, mental, or emotional condition, do you have difficulty doing errands alone such as visiting a doctor's office or shopping? Answer Date of Assessment Author Status No 05/21/2023 4:35 PM Radha Girard RN Active documented as of this encounter Mental Status * Because of a physical, mental, or emotional condition, do you have serious difficulty concentrating, remembering, or making decisions? Answer Entry Date Author Status No 05/21/2023 4:35 PM Radha Girard RN Active documented in this encounter Plan of Treatment Upcoming Encounters Date Type Department Care Team (Late st Contact Info) Description 09/22/2025 2:15 PM MANAGER MEDICAL DEVICE Office Visit [facility] [address] [place] [phone] Christine Min MD Three [facility]. [facility] [address] [place], [place] [id number] 12/23/2025 9:15 AM MANAGER MEDICAL DEVICE Office [facility] [address] [place] [phone] [address] FNP [address] [facility] [address] [place] [address] documented as of this encounter Goals Goal Patient Goal Type Associated Problems Recent Progress Patient-Stated? Author Health - patient able to perform ADLs independently General No Sarah Levy RN Safety Patient/family will have appropriate support at home upon discharge General No Erica De Santiago RN Patient will return to prior living situation and remain independent in ADLs upon discharge from hospital Lifestyle No Trang Sanchez RN documented as of this encounter Visit Diagnoses Not on filedocumented in this encounter Care Teams Health Club Manager Relationship Specialty Start Date End Date Joselin Tapia PA [address] [place], [place] [phone] PCP - General PHYSICIAN CONSULTING PSYCHIATRIST 07/19/22 Antoine Gama MD [address] [place] [phone] INTERNAL MEDICINE 02/22/21 documented as of this encounter
[2025-05-22 09:45] LABS: Hematocrit 45.5 % (42.0-52.0); Hemoglobin 15.8 g/dL (14.0-18.0); Immature Granulocyte Percent A 0.3 % (0-0.5); Lymphocytes Absolute Auto 1.82 K/mm3 (0.9-3.2); Mean Corpuscular HGB Conc 34.7 g/dl (32-36); Mean Corpuscular Hemoglobin 31.5 pg (26-34); Mean Corpuscular Volume 90.6 fl (80-100); Nucleated Red Blood Cells Absolute Auto 0.000 K/mm3 (0.0-0.012); Nucleated Red Blood Cells Perc 0.0 % (0.0-0.2); Platelet Count Result 184 k/mm3 (150-375); Red Blood Count 5.02 M/mm3 (4.6-6.20); White Blood Count 3.8 K/mm3 (4.5-10.0)
[2025-05-22 10:17] LABS: Alanine Aminotransferase 25 U/L (6-50); Albumin Level 4.0 g/dL (3.5-5.1); Alkaline Phosphatase 47 U/L (38-126); Anion Gap 9 mmol/L (4-12); Aspartate Amino Transferase 26 U/L (17-59); Bilirubin,Total 0.5 mg/dL (0.2-1.3); Blood Urea Nitrogen 12 mg/dL (9-20); Calcium 8.7 mg/dL (8.4-10.2); Carbon Dioxide 22 mmol/L (22-30); Chloride 109 mmol/L (98-107); Estimated Glomerular Filt Rate > 60; Glucose 121 mg/dL (65-110); Potassium 3.8 mmol/L (3.4-5.0); Sodium 140 mmol/L (137-145); Total Protein 6.9 g/dL (6.3-8.2)
[2025-05-22 10:53] LABS: Carcinoembryonic Antigen 2.0 ng/mL (0.0-3.0)
== END 2025-05-22 08:37 | disposition home or self-care (01) ==
LOC: ANHLAB 08:39
PROVIDERS: PCP Nurse Practitioner Family; Visit Provider Internal Medicine Hematology & Oncology
DX: C18.2 Malignant neoplasm of ascending colon (principal)
CPT/HCPCS: 36415; 80053; 82378; 85025

== ENCOUNTER 2025-08-24 09:01 | Outpatient (CLI) | payer OTHER, SELFPAY ==
--- NOTE | ~2025-08-24 | MR_ITS ---
EXAMINATION: MR knee LT wo con DATE: 08/24/2025 09:30 INDICATION: Left knee pain TECHNIQUE: Magnetic resonance imaging (MRI) of the left knee was performed without intravenous contrast. Sequences included coronal PD-weighted FSE, coronal PD-weighted FS FSE, sagittal T2-weighted FSE, sagittal PD-weighted FS FSE and axial PD weighted fat saturated FSE. COMPARISON: None. FINDINGS: Medial compartment: Complex tear of the body and posterior horn of the medial meniscus. There is medial extrusion of the medial meniscal body with portion of the periphery of the meniscus bulging caudally into the recess along the medial tibial plateau. There is a multi loculated parameniscal cyst arising from the posterior horn and extends laterally posterior to the distal aspect of the posterior cruciate ligament. 2.0 cm medial collateral, 2.2 cm craniocaudally and up to 8 mm in AP width. Deep chondral ulceration involving greater than 50% the cartilage thickness at the central weightbearing portion of the medial femoral condyle. There is more shallow partial thickness chondral ulceration both couple deep chondral fissures along the anterior weightbearing medial femoral condyle and at the central aspect of the medial tibial plateau. Lateral compartment: Lateral meniscus is normal. Shallow chondral and fissuring along the condyle. Additional small region of partial-thickness chondral ulceration with smooth chondral surface and tiny underlying subchondral osteophytes at the posterior most weightbearing lateral femoral condyle. Cartilage along the lateral tibial plateau is relatively preserved. Patellofemoral compartment: Deep chondral fissuring at the medial patellar facet. Small partial-thickness chondral ulceration involving less than 50% the cartilage thickness at the and medial sided lateral patellar facet along side the apical ridge. Partial- thickness chondral ulceration and deep fissuring without degenerative sub chondral changes located diffusely along the trochlear groove and extending across the mid to inferior aspect of the lateral trochlea and to the cephalad aspect of the medial trochlea. Ligaments and tendons: Anterior cruciate ligament is normal. There is mild central increased signal within the distal aspect of the posterior cruciate ligament consistent with at least partial tear. The medial collateral ligament and fibular collateral ligament complex are normal. The extensor mechanism is normal. The visualized medial and lateral hamstring tendons as well as the iliotibial band are normal. Fluid: Minimal left knee joint effusion. No loose osteochondral bodies identified. Osseous/other: Cardiomegaly and mild cystic change at the proximal tibia underlying the tibial insertions of the posterior cruciate ligament and posterior horn of the medial meniscus. No fracture or pathologic marrow replacing process. Mild osteoarthritis at the proximal tibiofibular articulation with small region of subarticular edema-like signal change along the tibial side of the joint. IMPRESSION: 1. Complex medial meniscal tear with parameniscal cyst arising from the posterior horn.. 2. 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 3. Increased intrasubstance signal in the distal posterior cruciate ligament consistent with at least partial tear. Correlate with physical exams assess for degree of residual functional integrity. Reviewed, dictated and finalized at location A. IMPRESSION: 1. Complex medial meniscal tear with parameniscal cyst arising from the posteri or horn.. 2. 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 3. Increased intrasubstance signal in the distal posterior cruciate ligament co nsistent with at least partial tear. Correlate with physical exams assess for d egree of residual functional integrity.
== END 2025-08-24 09:02 | disposition home or self-care (01) ==
LOC: MICIMG 09:01
PROVIDERS: PCP Nurse Practitioner Family; Visit Provider Orthopaedic Surgery
DX: S83.232A Complex tear of medial meniscus, current injury, left knee, initial encounter (principal); S83.522A Sprain of posterior cruciate ligament of left knee, initial encounter; X58.XXXA Exposure to other specified factors, initial encounter; M23.052 Cystic meniscus, posterior horn of lateral meniscus, left knee; M17.12 Unilateral primary osteoarthritis, left knee
CPT/HCPCS: 73721